=== PATIENT | female | born 1965 | race Two or more races ===

== ENCOUNTER 2018-05-10 23:02 | Emergency (ER) | END 2018-05-11 06:04 | disposition short-term general hospital (02) ==

== ENCOUNTER 2018-08-27 06:10 | Emergency (ER) | END 2018-08-27 10:12 | disposition home or self-care (01) ==

== ENCOUNTER 2019-03-16 00:36 | Emergency (ER) | payer OTHER ==
[~2019-03-16] VITALS: Ht 152.4 cm; Wt 61.4 kg
[~2019-03-16 00:36] MED LIST: AMLO5TAB4 PO; ATOR20TA38 PO; DICY10CA40 PO; METF-849 PO; ONDA4TAB14 PO
[2019-03-16 00:38] VITALS: Ht 152.4 cm; Wt 61.4 kg
[2019-03-16] MEDS ORDERED: HYDROmorphONE 1 MG/ML SYG IV STA (01:10)
[2019-03-16] MEDS ORDERED: ONDANSETRON 4 MG INJ IV STA (01:10)
--- NOTE | 2019-03-16 01:40 | ERD ---
ER Documentation Chief Complaint Chief Complaint BIB DAUGHTER FROM HOME S/P SYNCOPAL EPISODE 30MIN AGO HPI This is a 54-year-old female who is here for trauma. The patient says she woke up went to the restroom, and she is getting back into bed she was using her arm to brace herself on the footboard but her hand slipped off the foot board and she fell over the end of the bed onto the floor landing on the right side of her head and hitting her head on the wood footboard. The patient had positive LOC. The patient does recall falling and hitting the floor but then remembers waking up with her kids around her. She is complaining of right sided headache, right- sided neck pain, left-sided lumbar pain, left-sided shoulder pain. All movement causes worsening of these areas of pain. Her daughter says that she heard her fall and ran into the room I found her laying on the floor unconscious for about 1 minute. The patient says she has a history of recurrent syncope in the past but that she did not pass out tonight. No chest pain shortness of breath no weakness or numbness in the extremities ROS All systems reviewed and are negative except as per history of present illness. Medications Home Meds Active Scripts Ondansetron (Ondansetron Odt) 4 Mg Tab.rapdis, 4 MG PO Q6H PRN for NAUSEA AND/OR VOMITING, #20 TAB Prov:MARITZA CHEN MD 08/27/18 Dicyclomine HCl (Dicyclomine HCl) 10 Mg Capsule, 10 MG PO TID PRN for ABDOMINAL CRAMPING, #20 CAP Prov:MARITZA CHEN MD 08/27/18 Reported Medications Atorvastatin Calcium* (Atorvastatin Calcium*) 20 Mg Tablet, 20 MG PO QHS, #30 TAB 05/11/18 Amlodipine Besylate* (Norvasc*) 5 Mg Tablet, 5 MG PO DAILY, TAB 05/11/18 Metformin* (Glucophage*) 500 Mg Tab, 500 MG PO WITH BREAKFAST DINNE, #30 TAB 05/11/18 Allergies Allergies: Coded Allergies: No Known Drug Allergies (Verified Allergy, Unknown, 08/27/18) PMhx/Soc History of Surgery: Yes (partial hysterctomy, gallbladder removed) Anesthesia Reaction: No Hx Neurological Disorder: No Hx Respiratory Disorders: No Hx Cardiac Disorders: Yes (HTN) Hx Psychiatric Problems: No Hx Miscellaneous Medical Probl: Yes (diabetes) Hx Alcohol Use: No Hx Substance Use: No Hx Tobacco Use: No Smoking Status: Never smoker FmHx Family History: No coronary disease Physical Exam Vitals Vital Signs Date Temp Pulse Resp B/P (MAP) Pulse Ox O2 O2 Flow FiO2 Time Delivery Rate 03/16/19 99.5 89 18 148/81 98 Room Air 00:50 (103) 03/16/19 99.8 83 18 158/80 97 00:38 (106) Physical Exam Const: Well-developed, well-nourished Head: Atraumatic, normocephalic, right-sided temporal tenderness Eyes: Normal Conjunctiva, PERRLA, EOMI, normal sclera, no nystagmus ENT: Normal External Ears, Nose and Mouth, moist mucus membranes. Neck: Full range of motion. No meningismus, no lymphadenopathy. Resp: Clear to auscultation bilaterally, no wheezing, rhonchi, rales Cardio: Regular rate and rhythm, no murmurs, S1 S2 present Abd: Soft, non tender x 4, non distended. Normal bowel sounds, no guarding or rebound, no pulsitile abdominal masses or bruits Skin: No petechiae or rashes, no ecchymosis , no maculopapular rash Back: Left lumbar tenderness, negative straight leg test Ext: No cyanosis, or edema, FROM x 4, left anterior shoulder tender ness normal inspection, neurovascularly intact x 4 Neur: Awake and alert, STR 5/5 x 4, sensation intact x 4, no focal findings, cerebellum intact Psych: Normal Mood and Affect Result Diagram: 03/16/1913403/16/19134 Results 24 hrs Laboratory Tests Test 03/16/19 01:35 White Blood Count 7.7 10^3/ul Red Blood Count 4.05 10^6/ul Hemoglobin 12.9 g/dl Hematocrit 37.1 % Mean Corpuscular Volume 91.6 fl Mean Corpuscular Hemoglobin 31.9 pg Mean Corpuscular Hemoglobin Concent 34.8 g/dl Red Cell Distribution Width 12.3 % Platelet Count 274 10^3/UL Mean Platelet Volume 10.2 fl Immature Granulocytes % 0.100 % Neutrophils % 58.2 % Lymphocytes % 28.3 % Monocytes % 6.6 % Eosinophils % 6.2 % Basophils % 0.6 % Nucleated Red Blood Cells % 0.0 /100WBC Immature Granulocytes # 0.010 10^3/ul Neutrophils # 4.5 10^3/ul Lymphocytes # 2.2 10^3/ul Monocytes # 0.5 10^3/ul Eosinophils # 0.5 10^3/ul Basophils # 0.1 10^3/ul Nucleated Red Blood Cells # 0.0 10^3/ul Sodium Level 142 mmol/L Potassium Level 3.8 mmol/L Chloride Level 105 mmol/L Carbon Dioxide Level 26 mmol/L Anion Gap 11 Blood Urea Nitrogen 8 mg/dl Creatinine 0.35 mg/dl Est Glomerular Filtrat Rate mL/min > 60 mL/min Glucose Level 248 mg/dl Calcium Level 9.7 mg/dl Troponin I < 0.012 ng/ml Serum HCG, Qualitative NEGATIVE Current Medications Medications Dose Sig/John Start Time Status Last (Trade) Ordered Route PRN Stop Time Admin Dose Reason Admin 1 mg ONCE STAT 03/16/19 DC 03/16/19 Hydromorphone IV 01:10 01:52 HCl 03/16/19 01:14 (Dilaudid) Ondansetron 4 mg ONCE STAT 03/16/19 DC 03/16/19 HCl (Zofran IV 01:10 01:52 Inj) 03/16/19 01:14 Procedures/MDM Patient: HIEU PATTON : 1965 Age: 54 Sex: F MR #: [id number] DOS: 03/16/19 0110 Ordering MD: ROSIE WINTERS DO Location: E/R Room/Bed: PROCEDURE: CT head without intravenous contrast CLINICAL INDICATION: Trauma. Pain. COMPARISON: None. TECHNIQUE: Axial CT images from skull base to vertex with coronal and sagittal reformats. DOSE: The estimated administered radiation dose was CTDI vol = 37.01 mGy. DLP = 634.23 mGy-cm. One or more of the following dose reduction techniques were used: automated exposure control, adjustment of the mA and/or kV according to patient size, or use of iterative reconstruction. DICOM images are available. FINDINGS: Parenchyma: No acute hemorrhage, large territorial infarction, or mass. The mckeon-white matter junctions are intact. No space occupying intra-axial masses or extra-axial fluid collections are present. There is mild parenchymal volume loss. There is an empty sella Ventricles: No ventriculomegaly or ventricular effacement. Extra-axial spaces: No herniation or midline shift. Paranasal sinuses: Clear. Mastoids and middle ears: Clear. Visualized orbits: Normal. Vessels: <There is no calcified atherosclerotic arterial plaque identified in the internal carotid arteries.> Bones: Normal. Extracranial soft tissues: Normal. Additional comment: None. IMPRESSION: 1. No acute intracranial abnormality. 2. Empty sella. RPTAT: HRSR Physician Jessica Date Time Electronically viewed and signed by Rafaela Guerrero Physician on 03/16/2019 02:35 RR/ CC: ROSIE WINTERS DO [id number] Ordering MD: ROSIE WINTERS DO Location: E/R Room/Bed: PROCEDURE: CT Cervical Spine. CLINICAL INDICATION: Neck pain status post trauma TECHNIQUE: Helical CT scanning which forms the basis for coronal and sagittal reformatted images. All CT scans at this facility use dose modulation, iterative reconstruction, and/or weight-based dosing when appropriate to reduce radiation dose to as low as reasonably achievable. The CTDIvol is 22.25 mGy and the DLP is 547.81 mGy-cm. One or more of the following dose reduction techniques were used: automated exposure control, adjustment of the mA and/or kV according to patient size, or use of iterative reconstruction technique. DICOM images are available. COMPARISON: None. FINDINGS: Vertebral body heights are maintained as is alignment. No acute fracture is identified. There is nonspecific straightening of the normal cervical lordosis which may be positional or on the basis of muscular spasm. Minor degenerative changes are seen within the cervical and upper thoracic spine. In general, disc space heights appear maintained as do central canal and foraminal volumes. Small 4 mm sclerotic focus to the right of midline within the T4 vertebral body is indeterminate, statistically most likely a bone island particularly in the absence of any known primary neoplasm. The prevertebral soft tissues are within normal limits. The lung apices are clear. IMPRESSION: No definite fracture or significant listhesis, as above. Clinical clearance of the cervical spine is still recommended. RPTAT: HSAF Physician Jessica Date Time Electronically viewed and signed by Myla Samuel Physician on 03/16/2019 02:51 RF/ CC: ROSIE WINTERS DO [id number] Patient: HIEU PATTON : 1965 Age: 54 Sex: F MR #: [id number] DOS: 03/16/19 0110 Ordering MD: ROSIE WINTERS DO Location: E/R Room/Bed: PROCEDURE: CT LUMBAR SPINE WITHOUT CONTRAST CLINICAL INDICATION: 54 years of age female. Pain. Trauma. TECHNIQUE: CT of the lumbar spine was performed without intravenous contrast. Coronal and sagittal reformatted images were obtained from the axial source images. Images were reviewed on a high-resolution PACS workstation. DICOM images are available. Dose information: Based on a 32 cm phantom, the estimated radiation dose (CTDIvol mGy) for each series in this exam is 11. The estimated cumulative dose (DLP mGy-cm) is 285. One or more of the following dose reduction techniques were used: - Automated exposure control. - Adjustment of the mA and/or kV according to patient size. - Use of iterative reconstruction technique. COMPARISON: None available. FINDINGS: There are 5 mobile lumbar type vertebra. Lumbar spine is imaged from T12 to the sacrum. ALIGNMENT: Normal. VERTEBRAE: Vertebral bodies and posterior elements are intact without acute fracture. There is nonfusion of the right L1 transverse process that is unrelated to acute trauma. Bone mineral density appears normal. No suspicious bone lesions. DISKS AND FACETS: At L5-S1, there is advanced degenerative disc disease with decreased disc height and the vacuum phenomenon. There is a small posterior disc osteophyte complex. There is moderate bilateral facet joint arthritis with hypertrophy. Negative for significant central canal stenosis. There is severe bilateral intervertebral foraminal stenosis with potential nerve root compression. The remaining disc levels are normal. EXTRAVERTEBRAL SOFT TISSUES: No significant abnormality. VISUALIZED ABDOMEN AND PELVIS: No significant abnormality. Additional comment: None. IMPRESSION: 1. Negative for evidence of acute fracture or traumatic subluxation of the lumbar spine. 2. Degenerative disc disease and facet joint arthritis at L5-S1 with severe bilateral intervertebral foraminal stenosis and potential nerve root compression. RPTAT: HCTS Physician Seema Date Time Electronically viewed and signed by Edwar Rose Physician on 03/16/2019 02:58 CS/ CC: ROSIE WINTERS DO [id number] [place] [address] Radiology Main Line: [phone] DIAGNOSTIC IMAGING REPORT Patient: HIEU PATTON : 1965 Age: 54 Sex: F MR #: [id number] DOS: 03/16/19 0110 Ordering MD: ROSIE WINTERS DO Location: E/R Room/Bed: PROCEDURE: X-ray left shoulder. CLINICAL INDICATION: None. TECHNIQUE: AP, internal and external rotation, and Y views of the left shoulder were obtained. COMPARISON: Correlation is made with plain film examination of the right shoulder dated 10/11/2018. FINDINGS: No acute fracture. Diastases at the left acromioclavicular joint measures up to about 4 mm. If there is concern for ligamentous injury at the left AC joint consider dedicated acromioclavicular joint series for further evaluation. Diastases of the left AC joint appears slightly greater than that seen at the right AC joint on examination dated 10/11/2018. The soft tissues unremarkable IMPRESSION: 1. Mild diastases at the left AC joint, otherwise nonspecific. 2. If there is strong persistent concern for a left AC joint injury a dedicated AC joint series may be of further use. 3. Otherwise, no evident acute fracture. RPTAT: UU Physician Dar Date Time Electronically viewed and signed by Alfred Ruiz Physician on 03/16/2019 01:42 RS/ CC: ROSIE WINTERS DO [id number] EKG: Rate/Rhythm: Normal Sinus Rhythm,NL intervals QRS, ST, QT: NORMAL [place], QRS, QT] Impression: NORMAL EKG Patient is feeling better after pain medication. The patient had a accidental fall with head trauma causing LOC but there is no evidence of any acute fracture or bleed or any other pathology. Given family and her warning signs to return Patient feels much better at this time, and vital signs are normal, symptoms have improved. I did give strict instructions to return to the ED if symptoms continue or worsen, patient will otherwise follow-up with primary care physician. Patient understood instructions and agreed to plan. Disclaimer: Inadvertent spelling and grammatical errors are likely due to EHR/dictation software use and do not reflect on the overall quality of patient care. Also, please note that the electronic time recorded on this note does not necessarily reflect the actual time of the patient encounter. Departure Diagnosis: Primary Impression: Head injury Encounter type: initial encounter Qualified Codes: S09.90XA - Unspecified injury of head, initial encounter Additional Impressions: Cervical strain Encounter type: initial encounter Qualified Codes: S16.1XXA - Strain of muscle, fascia and tendon at neck level, initial encounter Lumbar strain Encounter type: initial encounter Qualified Codes: S39.012A - Strain of muscle, fascia and tendon of lower back, initial encounter Contusion of shoulder, left Encounter type: initial encounter Qualified Codes: S40.012A - Contusion of left shoulder, initial encounter Condition: Stable ROSIE WINTERS CjErrol GIRALDO March 16, 2019 01:40
[2019-03-16] MEDS ORDERED: IBUP-1542 PO (03:43)
[2019-03-16] MEDS ORDERED: METH500T PO (03:43)
[2019-03-16] MEDS ORDERED: HYDR-4011 PO (03:43)
[2019-03-16 04:35] VITALS: BP 140/89; PULSE 85; RESP 18
== END 2019-03-16 04:36 | disposition home or self-care (01) ==
LOC: E/R 00:36
DX: S09.90XA Unspecified injury of head, initial encounter (principal); S16.1XXA Strain of muscle, fascia and tendon at neck level, initial encounter; S39.012A Strain of muscle, fascia and tendon of lower back, initial encounter; S40.012A Contusion of left shoulder, initial encounter; I10 Essential (primary) hypertension; E11.9 Type 2 diabetes mellitus without complications; W18.09XA Striking against other object with subsequent fall, initial encounter; Y92.009 Unspecified place in unspecified non-institutional (private) residence as the place of occurrence of the external cause; Z79.84 Long term (current) use of oral hypoglycemic drugs
CPT/HCPCS: 70450; 72125; 72131; 73030; 80048; 84484; 84703; 85025; 93005; 96374; 96375; J1170; J2405; Z7502

== ENCOUNTER 2019-04-28 12:41 | Emergency (ER) | payer OTHER ==
[~2019-04-28] VITALS: Ht 165.1 cm; Wt 53.7 kg
[~2019-04-28 12:41] MED LIST changes: -ATOR20TA38 PO; -DICY10CA40 PO; +HYDR-4011 PO; +IBUP-1542 PO; +METH500T PO; -ONDA4TAB14 PO
[2019-04-28 12:51] VITALS: Ht 165.1 cm; Wt 53.7 kg
[2019-04-28] MEDS ORDERED: SOD CHLORIDE 0.9% 1,000 ML IV STA (13:19)
[2019-04-28] MEDS ORDERED: morphine 4 MG/ML VIAL IV STA (13:19)
[2019-04-28] MEDS ORDERED: ONDANSETRON 4 MG INJ IV STA (13:19)
[2019-04-28] MEDS ORDERED: LACTATED RINGER'S 1,000 ML IV STA (13:19)
[2019-04-28] MEDS ORDERED: BENA40TA56 PO (13:40)
[2019-04-28] MEDS ORDERED: LORA0.5T PO (13:47)
[2019-04-28] MEDS ORDERED: CITA10TA10 PO (13:48)
[2019-04-28] MEDS ORDERED: SUCR1TAB56 PO (13:48)
[2019-04-28] MEDS ORDERED: METF100010 PO (13:49)
[2019-04-28] MEDS ORDERED: DICY10CA40 PO (14:12)
[2019-04-28] MEDS ORDERED: ONDA4TAB14 PO (14:12)
--- NOTE | 2019-04-28 14:13 | ERD ---
ER Documentation Chief Complaint Chief Complaint left sided ap x 1.5 wk. diarrhea; n/v HPI 54-year-old female presenting with left-sided abdominal pain that has been intermittent for the past 10 days, now more constant. She describes it as a cramping and dull pain associated with nausea, vomiting that is nonbloody and nonbilious, as well as watery diarrhea. She denies any recent travel or other exposures. No sick contacts. No fevers. Her family states that when she has a lot of pain, she passes out which has been happening to her for quite some time as well. She was seen at [facility] a few days ago and had blood work done. She was told that everything was okay and she was discharged home. However her symptoms continue which is why they are here today. Currently she rates her pain as a 5 out of 10. No dysuria or hematuria. ROS All systems reviewed and are negative except as per history of present illness. Medications Home Meds Active Scripts Ondansetron (Ondansetron Odt) 4 Mg Tab.rapdis, 4 MG PO Q6H PRN for NAUSEA AND/OR VOMITING, #10 TAB Prov:CHAD CHACON MD 04/28/19 Dicyclomine HCl (Dicyclomine HCl) 10 Mg Capsule, 10 MG PO TID PRN for ABDOMINAL CRAMPING, #20 CAP Prov:CHAD CHACON MD 04/28/19 Reported Medications Metformin Hcl* (Metformin Hcl*) 1,000 Mg Tablet, 1000 MG PO WITH BREAKFAST DINNE, #60 TAB 04/28/19 Sucralfate* (Carafate*) 1 Gm Tab, 1 GM PO AC MEALS AND BEDTIME, TAB 04/28/19 Citalopram Hydrobromide* (Celexa*) 10 Mg Tablet, 10 MG PO DAILY, #30 TAB 04/28/19 Lorazepam* (Lorazepam*) 0.5 Mg Tablet, 0.5-1 MG PO QID PRN for ANXIETY, TAB 04/28/19 Benazepril Hcl* (Benazepril Hcl*) 40 Mg Tablet, 40 MG PO DAILY, #30 TAB 04/28/19 Discontinued Reported Medications Amlodipine Besylate* (Norvasc*) 5 Mg Tablet, 5 MG PO DAILY, TAB 05/11/18 Metformin* (Glucophage*) 500 Mg Tab, 1000 MG PO WITH BREAKFAST DINNE, #30 TAB 05/11/18 Discontinued Scripts Methocarbamol* (Robaxin*) 500 Mg Tab, 500 MG PO Q8, #10 TAB Prov:ROSIE WINTERS. DO 03/16/19 Ibuprofen* (Motrin*) 600 Mg Tab, 600 MG PO Q8, #30 TAB Prov:GIOVANI WINTERSSTOLOS A. DO 03/16/19 Hydrocodone/Acetaminophen (Cartwright 5-325 Tablet) 1 Each Tablet, 1 TAB PO Q6H PRN for PAIN, #7 TAB Prov:GIOVANI WINTERSSTOLOS A. DO 03/16/19 Allergies Allergies: Coded Allergies: No Known Drug Allergies (Unverified Allergy, Unknown, 04/28/19) PMhx/Soc History of Surgery: Yes (partial hysterctomy, cholecystectomy) Anesthesia Reaction: No Hx Neurological Disorder: No Hx Respiratory Disorders: No Hx Cardiac Disorders: Yes (HTN) Hx Psychiatric Problems: No Hx Miscellaneous Medical Probl: Yes (diabetes) Hx Alcohol Use: No Hx Substance Use: No Hx Tobacco Use: No Smoking Status: Never smoker FmHx Family History: No diabetes Physical Exam Vitals Vital Signs Date Temp Pulse Resp B/P (MAP) Pulse Ox O2 O2 Flow FiO2 Time Delivery Rate 04/28/19 98.6 57 15 160/99 97 Room Air 15:00 (119) 04/28/19 98.6 85 18 148/83 98 Room Air 13:20 (104) 04/28/19 98.6 71 18 133/68 98 12:51 (89) Physical Exam Const: Mild distress secondary to pain, nontoxic Head: Atraumatic Eyes: Normal Conjunctiva ENT: Normal External Ears, Nose and Mouth. Neck: Full range of motion. No meningismus. Resp: Clear to auscultation bilaterally Cardio: Regular rate and rhythm, no murmurs Abd: Soft, mild tenderness to palpation in the left upper abdomen, non di stended. Normal bowel sounds Skin: No petechiae or rashes Back: No midline or flank tenderness Ext: No cyanosis, or edema Neur: Awake and alert Psych: Normal Mood and Affect Result Diagram: 04/28/19 1321 04/28/19 1321 Results 24 hrs Laboratory Tests Test 04/28/19 13:21 04/28/19 13:41 04/28/19 13:48 White Blood Count 7.3 10^3/ul Red Blood Count 4.55 10^6/ul Hemoglobin 14.3 g/dl Hematocrit 41.8 % Mean Corpuscular Volume 91.9 fl Mean Corpuscular Hemoglobin 31.4 pg Mean Corpuscular 34.2 g/dl Hemoglobin Concent Red Cell Distribution Width 11.9 % Platelet Count 277 10^3/UL Mean Platelet Volume 10.0 fl Immature Granulocytes % 0.100 % Neutrophils % 56.1 % Lymphocytes % 32.8 % Monocytes % 5.7 % Eosinophils % 4.8 % Basophils % 0.5 % Nucleated Red Blood Cells % 0.0 /100WBC Immature Granulocytes # 0.010 10^3/ul Neutrophils # 4.1 10^3/ul Lymphocytes # 2.4 10^3/ul Monocytes # 0.4 10^3/ul Eosinophils # 0.4 10^3/ul Basophils # 0.0 10^3/ul Nucleated Red Blood Cells # 0.0 10^3/ul Sodium Level 142 mmol/L Potassium Level 3.8 mmol/L Chloride Level 104 mmol/L Carbon Dioxide Level 28 mmol/L Anion Gap 10 Blood Urea Nitrogen 6 mg/dl Creatinine 0.42 mg/dl Est Glomerular Filtrat Rate mL/min > 60 mL/min Glucose Level 121 mg/dl Calcium Level 9.8 mg/dl Total Bilirubin 0.7 mg/dl Direct Bilirubin 0.00 mg/dl Indirect Bilirubin 0.7 mg/dl Aspartate Amino Transf (AST/SGOT) 20 IU/L Alanine 26 IU/L Aminotransferase (ALT/SGPT) Alkaline Phosphatase 77 IU/L Total Protein 8.1 g/dl Albumin 4.5 g/dl Globulin 3.60 g/dl Albumin/Globulin Ratio 1.25 Lipase 97 U/L Bedside Glucose 111 mg/dL Bedside Urine pH (LAB) 8.5 Bedside Urine Protein (LAB) 1+ Bedside Urine Glucose (UA) Negative Bedside Urine Ketones (LAB) Negative Bedside Urine Blood Negative Bedside Urine Nitrite (LAB) Negative Bedside Urine Leukocyte Esterase Negative (L Current Medications Medications Dose Sig/John Start Time Status Last (Trade) Ordered Route PRN Stop Time Admin Dose Reason Admin Sodium 1,000 ml @ Q1H STAT 04/28/19 DC 04/28/19 Chloride 1,000 mls/hr IV 13:19 13:33 04/28/19 14:18 Lactated 1,000 ml @ Q1H STAT 04/28/19 DC 04/28/19 Ringer's 1,000 mls/hr IV 13:19 13:33 04/28/19 14:18 Morphine 4 mg ONCE STAT 04/28/19 DC 04/28/19 Sulfate IV 13: 13:33 (morphine) 04/28/19 13:21 Ondansetron 4 mg ONCE STAT 04/28/19 DC 04/28/19 HCl (Zofran IV 13: 13:33 Inj) 04/28/19 13:21 Procedures/MDM EMERGENT LABS AND DIAGNOSTIC STUDIES: Lab Results above were reviewed and interpreted by me. CBC: no anemia or evidence of infection CMP: No evidence of clinically significant electrolyte abnormality, acidosis, renal failure, hypoglycemia, liver disease, or biliary obstruction Urine dip shows no evidence of infection Radiology Results as interpreted by Radiology below were reviewed by Sadie Chacon MD: CT abdomen and pelvis shows no acute abnormalities Initial Nursing notes reviewed. Previous Medical Records requested via the Electronic Health Record. EMERGENCY DEPARTMENT COURSE / MEDICAL DECISION MAKING: Patient is presenting with 10 days of abdominal pain with associated vomiting an d diarrhea. She was afebrile and hemodynamically stable upon arrival. She was treated with IV fluids and antiemetics. At this moment the etiology of the abdominal pain is unknown. The patients v itals have been noted and are currently afebrile and hemodynamically stable. The workup, physical exam and observation period do not indicate a serious cause to the pain. The patients symptoms have improved while in the ED and the patient remains hemodynamically stable. Patient was able to tolerate PO. The current assessment has been explained to the patient including the fact that the etiology of the pain cannot be ruled out with certainty. Patient was advised that in the event this is early in the process of a more serious condition they may expect their symptoms to worsen and if so to return to the emergency department immediately. Patient was advised to follow up with primary care physician as soon as possible for re-evaluation within the next 1-2 days. All of the patients questions were answered. Patient verbalized understanding of plan and agrees. Advised to return to the ER for reevaluation within 12 hours if symptoms worsen. Prescriptions given included Zofran and dicyclomine Patient's blood pressure was elevated (>120/80) but appears stable without evide nce of hypertensive emergency or urgency. The patient was counseled about the risks of hypertension and urged to pursue outpatient monitoring and therapy within a week with their primary care physician. Departure Diagnosis: Primary Impression: Abdominal pain Abdominal location: generalized Qualified Codes: R10.84 - Generalized abdominal pain Additional Impression: Nausea, vomiting and diarrhea Condition: Stable Patient Instructions: Abdominal Pain, Vomiting And Diarrhea, Nonspecific (Adult) Additional Instructions: Make an appointment with your primary care doctor in the next 1 to 2 days to hav e further testing done if your symptoms continue. If your pain is worsening or you develop any other worrisome symptoms, return to the ER. CHAD CHACON MD Apr 28, 2019 14:13
[2019-04-28 15:00] VITALS: BP 160/99; PULSE 57; RESP 15
== END 2019-04-28 15:03 | disposition home or self-care (01) ==
LOC: E/R 12:41
DX: R10.84 Generalized abdominal pain (principal); R11.2 Nausea with vomiting, unspecified; R19.7 Diarrhea, unspecified; I10 Essential (primary) hypertension; E11.9 Type 2 diabetes mellitus without complications; Z79.84 Long term (current) use of oral hypoglycemic drugs
CPT/HCPCS: 36415; 74176; 80053; 81003; 82962; 83690; 85025; 96361; 96374; 96375; J2270; J2405; J7030; J7120; Z7502; Z7610

== ENCOUNTER 2019-05-10 02:19 | Observation (INO) | payer OTHER ==
[~2019-05-10] VITALS: Ht 152.4 cm; Wt 55.5 kg
[~2019-05-10 02:19] MED LIST changes: -AMLO5TAB4 PO; +BENA40TA56 PO; +CITA10TA10 PO; +DICY10CA40 PO; -HYDR-4011 PO; -IBUP-1542 PO; +LORA0.5T PO; -METF-849 PO; +METF100010 PO; -METH500T PO; +ONDA4TAB14 PO; +SUCR1TAB56 PO
[2019-05-10 02:21] VITALS: Ht 152.4 cm; Wt 55.5 kg
[2019-05-10] MEDS ORDERED: ONDANSETRON 4 MG INJ IV STA (03:11)
[2019-05-10] MEDS ORDERED: morphine 4 MG/ML VIAL IV STA ×2 (03:11→04:35)
--- NOTE | 2019-05-10 03:21 | ERD ---
ER Documentation Chief Complaint Chief Complaint SYNCOPE, HIT HEAD AND ARM, LLQ PAIN HPI Is a 54-year-old female who presents for evaluation of syncope. Patient has history of chronic abdominal pain, over the last 3 months, her states that the patient's pain has been getting worse. She has not had a fever, but he states that she has been experiencing progressive weight loss. Patient has not a fever, she has no chest pain or shortness of breath. I had previously seen the patient at [facility] on May 05. ROS All systems reviewed and are negative except as per history of present illness. Medications Home Meds Active Scripts Ondansetron (Ondansetron Odt) 4 Mg Tab.rapdis, 4 MG PO Q6H PRN for NAUSEA AND/OR VOMITING, #10 TAB Prov:CHAD GARCIA MD 04/28/19 Dicyclomine HCl (Dicyclomine HCl) 10 Mg Capsule, 10 MG PO TID PRN for ABDOMINAL CRAMPING, #20 CAP Prov:CHAD GARCIA MD 04/28/19 Reported Medications Metformin Hcl* (Metformin Hcl*) 1,000 Mg Tablet, 1000 MG PO WITH BREAKFAST DINNE, #60 TAB 04/28/19 Sucralfate* (Carafate*) 1 Gm Tab, 1 GM PO AC MEALS AND BEDTIME, TAB 04/28/19 Citalopram Hydrobromide* (Celexa*) 10 Mg Tablet, 10 MG PO DAILY, #30 TAB 04/28/19 Lorazepam* (Lorazepam*) 0.5 Mg Tablet, 0.5-1 MG PO QID PRN for ANXIETY, TAB 04/28/19 Benazepril Hcl* (Benazepril Hcl*) 40 Mg Tablet, 40 MG PO DAILY, #30 TAB 04/28/19 Allergies Allergies: Coded Allergies: No Known Drug Allergies (Unverified Allergy, Unknown, 04/28/19) PMhx/Soc History of Surgery: Yes (partial hysterctomy, cholecystectomy) Anesthesia Reaction: No Hx Neurological Disorder: No Hx Respiratory Disorders: No Hx Cardiac Disorders: Yes (HTN) Hx Psychiatric Problems: No Hx Miscellaneous Medical Probl: Yes (diabetes) Hx Alcohol Use: No Hx Substance Use: No Hx Tobacco Use: No Smoking Status: Never smoker Physical Exam Vitals Vital Signs Date Temp Pulse Resp B/P (MAP) Pulse Ox O2 O2 Flow FiO2 Time Delivery Rate 05/10/19 97.6 64 18 124/71 95 02:21 (88) Physical Exam Const: No acute distress Head: Atraumatic Eyes: Normal Conjunctiva ENT: Normal External Ears, Nose and Mouth. Neck: Full range of motion. No meningismus. Resp: Clear to auscultation bilaterally Cardio: Regular rate and rhythm, no murmurs Abd: Soft, non tender, non distended. Normal bowel sounds Skin: No petechiae or rashes Back: No midline or flank tenderness Ext: No cyanosis, or edema Neur: Awake and alert Psych: Normal Mood and Affect Result Diagram: 05/10/1925405/10/19254 Results 24 hrs Laboratory Tests Test 05/10/19 02:55 05/10/19 03:09 White Blood Count 8.1 10^3/ul Red Blood Count 4.38 10^6/ul Hemoglobin 13.8 g/dl Hematocrit 39.7 % Mean Corpuscular Volume 90.6 fl Mean Corpuscular Hemoglobin 31.5 pg Mean Corpuscular Hemoglobin Concent 34.8 g/dl Red Cell Distribution Width 11.6 % Platelet Count 265 10^3/UL Mean Platelet Volume 10.1 fl Immature Granulocytes % 0.200 % Neutrophils % 55.2 % Lymphocytes % 33.9 % Monocytes % 5.5 % Eosinophils % 4.7 % Basophils % 0.5 % Nucleated Red Blood Cells % 0.0 /100WBC Immature Granulocytes # 0.020 10^3/ul Neutrophils # 4.5 10^3/ul Lymphocytes # 2.8 10^3/ul Monocytes # 0.5 10^3/ul Eosinophils # 0.4 10^3/ul Basophils # 0.0 10^3/ul Nucleated Red Blood Cells # 0.0 10^3/ul Sodium Level 143 mmol/L Potassium Level 3.6 mmol/L Chloride Level 109 mmol/L Carbon Dioxide Level 25 mmol/L Anion Gap 9 Blood Urea Nitrogen 11 mg/dl Creatinine 0.51 mg/dl Est Glomerular Filtrat Rate mL/min > 60 mL/min Glucose Level 168 mg/dl Calcium Level 9.4 mg/dl Total Bilirubin 0.4 mg/dl Direct Bilirubin 0.00 mg/dl Indirect Bilirubin 0.4 mg/dl Aspartate Amino Transf (AST/SGOT) 24 IU/L Alanine Aminotransferase (ALT/SGPT) 29 IU/L Alkaline Phosphatase 79 IU/L Troponin I < 0.012 ng/ml Total Protein 7.6 g/dl Albumin 4.4 g/dl Lipase 140 U/L Bedside Glucose 141 mg/dL Current Medications Medications Dose Sig/John Start Time Status Last (Trade) Ordered Route PRN Stop Time Admin Dose Reason Admin Morphine 4 mg ONCE STAT 05/10/19 DC 05/10/19 Sulfate IV 03:11 05/10/19 03:25 (morphine) 03:13 Ondansetron 4 mg ONCE STAT 05/10/19 DC 05/10/19 HCl (Zofran IV 03:11 05/10/19 03:25 Inj) 03:13 Procedures/MDM 54-year-old female with a history of chronic abdominal pain, presents for evaluation of syncope. Patient had head trauma, and head CT ordered, as well as abdominal pain work-up. EKG: Rate/Rhythm: Normal Sinus Rhythm QRS, ST, T-waves: No changes consistent w/ acute ischemia Impression: No evidence of ischemia or arrhythmia 4:10 AM: I reviewed patient's CT, no obvious evidence of intracranial findings, awaiting read. Patient lab work all returned negative, she continues to have pain, given this is now third visit over the last 3 weeks, and she has been having weight loss, and a syncopal episode, which may be related to her decreased oral intake and abdominal pain, I feel that she has failed outpatient management, and warrants admission. Patient will be admitted to telemetry observation. I discussed the plan of care with the patient and her spouse. Accepting Care Team: Current data and ongoing care discussed. Primary: Nahun Consulting: None Outstanding Data: none Departure Diagnosis: Primary Impression: Syncope Syncope type: unspecified Qualified Codes: R55 - Syncope and collapse Additional Impression: Abdominal pain Abdominal location: unspecified location Qualified Codes: R10.9 - Unspecified abdominal pain Condition: GIAN Pace MD May 10, 2019 03:21
[2019-05-10] MEDS ORDERED: ONDANSETRON 4 MG INJ IV PRN (04:30)
[2019-05-10] MEDS ORDERED: DICYCLOMINE 10 MG CAP PO PRN (08:30)
[2019-05-10] MEDS ORDERED: LORAZEPAM 0.5 MG TAB PO PRN (08:30)
[2019-05-10] MEDS ORDERED: ACETAMINOPHEN 325 MG TAB PO PRN (08:30)
[2019-05-10] MEDS ORDERED: NACL 0.9% 3 ML SYG IV SCH (08:30)
[2019-05-10] MEDS ORDERED: DOCUSATE SODIUM 100 MG CAP PO PRN (08:30)
[2019-05-10] MEDS: FAMOTIDINE 20 MG TAB PO SCH ×2 (10:19→21:14)
[2019-05-10] MEDS: CITALOPRAM 20 MG TAB PO SCH (10:53)
[2019-05-10] MEDS: BENAZEPRIL 40 MG TAB PO SCH (10:53)
[2019-05-10] MEDS ORDERED: GLUCOSE GEL 15 GRAM TUBE PO PRN ×2 (12:30)
[2019-05-10] MEDS ORDERED: GLUCAGON 1 MG INJ IM PRN (12:30)
[2019-05-10] MEDS ORDERED: DEXTROSE 50% 50 ML SYRINGE IV PRN ×2 (12:30)
[2019-05-10] MEDS ORDERED: GLUCOSE GEL 15 GRAM TUBE BUCCAL PRN (12:30)
[2019-05-10] MEDS ORDERED: MAGNESIUM CITRATE 300 ML BTL PO ONE (12:30)
[2019-05-10 14:00] VITALS: BP 112/65; PULSE 61; RESP 20
--- NOTE | 2019-05-10 15:43 | HP ---
DATE OF ADMISSION: 05/10/2019 CHIEF COMPLAINT: Syncopal episode. HISTORY OF PRESENT ILLNESS: A 54-year-old female with a history of chronic abdominal pain for severa l months was brought into emergency room with a chief complaint of a syncopal episode. The patient w as evaluated at [facility] emergency room on 05/05/2019. She reports that the CAT scan at that time showed stool throughout the colon with no other abnormalities. The patient used the bathroom a nd while she was standing up, she felt dizzy and fell onto the ground. She keeps her head on her arm against a wall. She denies any focal weakness or numbness. Normal speech or visual difficulties. CAT scan of the brain was unremarkable. CAT scan of the abdomen was also unremarkable. PAST MEDICAL HISTORY: 1. Type 2 diabetes mellitus. 2. Hypertension. PAST SURGICAL HISTORY: Status post partial hysterectomy and status post cholecystectomy. MEDICATIONS PRIOR TO ADMISSION: 1. Zofran. 2. Dicyclomine. 3. Metformin. 4. Sucralfate. 5. Celexa. 6. Lorazepam. 7. Benazepril. SOCIAL HISTORY: The patient lives at home. She denies tobacco or alcohol use. PHYSICAL EXAMINATION: GENERAL: Well-developed, well-nourished female who is in no apparent distress. VITAL SIGNS: Stable. She is afebrile. HEENT: Extraocular muscles intact. Pupils equal and reactive to light bilaterally. Sclerae are ani cteric. Oropharynx is clear and moist. NECK: Supple, no JVD, no carotid bruits. LUNGS: Clear to auscultation bilaterally. CARDIAC: Regular rate and rhythm. No murmurs, rubs or gallops. ABDOMEN: Soft, diffusely tender to palpation, especially in the left lower quadrant region. No rebo und, no guarding. Normoactive bowel sounds. EXTREMITIES: No clubbing, cyanosis, or edema. NEUROLOGICAL: Completely nonfocal. LABORATORY DATA: CBC within normal limits. BMP is within normal limits. Lipase is 140. ASSESSMENT: 1. A 54-year-old female with a syncopal episode, most likely vasovagal in nature. 2. Chronic abdominal pain, most likely due to chronic constipation. 3. Hypertension. 4. Type 2 diabetes mellitus. PLAN: 1. Place in tele observation. 2. Resume home medications. 3. Magnesium citrate x1 bottle. 4. Avoid narcotics due to constipation. 5. Plan of care was discussed with the patient. Dictated By: SAGAR HINTON/KRISSY Conf#: [id number] DID#: [id number]
[2019-05-10] MEDS: SUCRALFATE 1 GM TAB PO SCH ×3 (15:50→21:14)
[2019-05-10] MEDS: INSULIN ASPART [NOVOLOG] 3 ML PEN SC SCH ×2 (17:44→21:00)
[2019-05-10] MEDS: metFORMIN 500 MG TAB PO SCH (17:45)
[2019-05-10] MEDS: KETOROLAC 15 MG INJ IV PRN ×2 (17:46→23:50)
[2019-05-10 20:00] VITALS: BP 115/61; PULSE 55; RESP 18
[2019-05-10 23:39] VITALS: BP 121/68; PULSE 59; RESP 20
[2019-05-11] MEDS: DEXTROSE 5%-0.45% NACL 1,000 ML IV SCH ×2 (01:43→10:30)
[2019-05-11 03:46] VITALS: BP 133/76; PULSE 53; RESP 20
[2019-05-11] MEDS: KETOROLAC 15 MG INJ IV PRN (06:33)
[2019-05-11 07:23] VITALS: BP 122/60; PULSE 55; RESP 18
[2019-05-11] MEDS: metFORMIN 500 MG TAB PO SCH (07:55)
[2019-05-11] MEDS: INSULIN ASPART [NOVOLOG] 3 ML PEN SC SCH ×2 (07:55→11:50)
[2019-05-11] MEDS: FAMOTIDINE 20 MG TAB PO SCH (08:50)
[2019-05-11] MEDS: CITALOPRAM 20 MG TAB PO SCH (08:50)
[2019-05-11] MEDS: SUCRALFATE 1 GM TAB PO SCH ×2 (08:50→13:12)
[2019-05-11] MEDS: BENAZEPRIL 40 MG TAB PO SCH (08:50)
[2019-05-11] MEDS ORDERED: DOCU-144 PO (10:53)
--- NOTE | 2019-05-11 10:54 | PDOCDIS ---
Discharge Instructions CONDITION [id number] Patient Condition: [id number] Good HOME CARE INSTRUCTIONS: [id number] Diet Instructions: [id number] Activity Restrictions: [id number] No Restrictions FOLLOW UP/APPOINTMENTS Follow-up Plan pcp 1 week SAGAR Toribio MD May 11, 2019 10:54
[2019-05-11] MEDS ORDERED: PANT40TA3 PO (11:00)
[2019-05-11 11:09] VITALS: BP 118/55; PULSE 60; RESP 20
--- NOTE | 2019-05-11 12:15 | DS ---
DATE OF ADMISSION: 05/10/2019 DATE OF DISCHARGE: DISCHARGE DIAGNOSES: 1. A 54-year-old female with syncopal episode, most likely vasovagal in nature. 2. Chronic abdominal pain of unclear etiology. 3. Chronic gastritis. Status post EGD 1 month prior to admission. 4. Hypertension. 5. Type 2 diabetes mellitus. PROCEDURE: During hospitalization is CAT scan. HOSPITAL COURSE: A 54-year-old female with history of abdominal pain for several months, was brought in to emergency room following near syncopal episode. The patient stood up while she was in the [facility] hroom and suddenly became lightheaded and fell onto the ground. She believes she had a syncopal epis ode. She denies any chest pain, focal weakness or numbness. Telemetry monitoring was unremarkable. The patient has had ongoing abdominal pain for several months. She underwent EGD, 1 month prior to admission and found to have chronic gastritis. There was no evidence of H. pylori. The patient was prescribed sucralfate and PPI. CAT scan of the abdomen and pelvis was fairly unremarkable. The patient is in a stable condition for discharge. I prescribed Colace since she reported having co nstipation. Case was discussed with Dr. Brown. The patient will undergo colonoscopy as outpatient. MEDICATIONS ON DISCHARGE: 1. Benazepril 40 mg daily. 2. Celexa 10 mg daily. 3. Dicyclomine 10 mg t.i.d. 4. Lorazepam as needed. 5. Metformin 1000 mg b.i.d. 6. Zofran 4 mg q.6 hours p.r.n. 7. Carafate 1 g 4 times daily. 8. Protonix 40 mg p.o. daily. Follow up with PCP in 1 week. Follow up with Dr. Brown as soon as possible for diagnostic colonoscopy. Dictated By: SAGAR MATOS MD SK/NTS Conf#: [id number] DID#: [id number] CC: DEZ BROWN; ROBBY SAINZ MD;*EndCC*
[2019-05-17] MEDS ORDERED: LIDOCAINE 2% (SDV) 5 ML INJ ONE (08:02)
[2019-05-17] MEDS ORDERED: KETAMINE (50 MG/ML) 10 ML VIAL ONE (08:02)
== END 2019-05-11 15:56 | disposition home or self-care (01) ==
LOC: E/R 02:19 → TEL 04:09 → EDBEDREQ 13:31
PROVIDERS: ADMIT Internal Medicine; ATTEND Internal Medicine
DX: R55 Syncope and collapse (principal); G89.29 Other chronic pain; R10.9 Unspecified abdominal pain; K29.50 Unspecified chronic gastritis without bleeding; I10 Essential (primary) hypertension; E11.9 Type 2 diabetes mellitus without complications; Z79.84 Long term (current) use of oral hypoglycemic drugs
CPT/HCPCS: 36415; 70450; 74176; 80048; 80076; 82962; 83036; 83690; 84443; 84484; 85025; 93005; 96374; 96375; J1815; J1885; J2270; J2405; J7042; Z7500; Z7502; Z7610; G0378

== ENCOUNTER 2019-06-10 17:25 | Inpatient (IN) | payer OTHER ==
[~2019-06-10] VITALS: Ht 152.4 cm; Wt 54.0 kg
[~2019-06-10 17:25] MED LIST changes: +DOCU-144 PO; +ERYT250C52 PO; +METO10TA92 PO; +PANT40TA3 PO
[2019-06-10] MEDS ORDERED: SOD CHLORIDE 0.9% 1,000 ML IV STA (19:10)
[2019-06-10] MEDS ORDERED: METOCLOPRAMIDE 10 MG INJ IV STA (19:10)
[2019-06-10] MEDS ORDERED: LIDOCAINE/MYLANTA 40 ML BTL PO STA (19:10)
[2019-06-10] MEDS ORDERED: FAMOTIDINE 20 MG INJ IV STA (19:10)
[2019-06-10] MEDS ORDERED: morphine 4 MG/ML VIAL IV STA (19:53)
--- NOTE | 2019-06-10 21:20 | ERD ---
ER Documentation Chief Complaint Chief Complaint Upper ABD pain x 2 days with n/v HPI 54-year-old female with a history of gastritis and chronic abdominal pain presenting with severe abdominal pain for the past 3 days associated with nonbloody and nonbilious vomiting. She has also had some loose stools that are nonbloody. She complains of severe stabbing pain in the center of her abdomen that radiates all over her abdomen. She states she feels very weak because she has been unable to eat or drink due to the pain. Per the patient's , she had a syncopal episode earlier today due to her symptoms. She is on sucralfate and Protonix at home without any relief of her symptoms. Pain is constant, worsening, currently a 10 out of 10. Denies fevers or chills. Denies chest pain or shortness of breath. She states that this pain is similar to her usual pain ROS All systems reviewed and are negative except as per history of present illness. Medications Home Meds Active Scripts Pantoprazole* (Protonix*) 40 Mg Tablet.dr, 40 MG PO DAILY for 30 Days, TAB Prov:SAGAR MATOS MD 05/11/19 Docusate Sodium* (Colace*) 100 Mg Capsule, 100 MG PO Q12H PRN for .CONSTIPATION for 30 Days, CAP Prov:SAGAR MATOS MD 05/11/19 Ondansetron (Ondansetron Odt) 4 Mg Tab.rapdis, 4 MG PO Q6H PRN for NAUSEA AND/OR VOMITING, #10 TAB Prov:CHAD GARCIA MD 04/28/19 Dicyclomine HCl (Dicyclomine HCl) 10 Mg Capsule, 10 MG PO TID PRN for ABDOMINAL CRAMPING, #20 CAP Prov:CHAD GARCIA MD 04/28/19 Reported Medications Metformin Hcl* (Metformin Hcl*) 1,000 Mg Tablet, 1000 MG PO WITH BREAKFAST DINNE, #60 TAB 04/28/19 Sucralfate* (Carafate*) 1 Gm Tab, 1 GM PO AC MEALS AND BEDTIME, TAB 04/28/19 Citalopram Hydrobromide* (Celexa*) 10 Mg Tablet, 10 MG PO DAILY, #30 TAB 04/28/19 Lorazepam* (Lorazepam*) 0.5 Mg Tablet, 0.5-1 MG PO QID PRN for ANXIETY, TAB 04/28/19 Benazepril Hcl* (Benazepril Hcl*) 40 Mg Tablet, 40 MG PO DAILY, #30 TAB 04/28/19 Allergies Allergies: Coded Allergies: No Known Drug Allergies (Unverified Allergy, Unknown, 04/28/19) PMhx/Soc History of Surgery: Yes (cholecystectomy, hysterectomy, hemorrhoidectomy) Anesthesia Reaction: No Hx Neurological Disorder: No Hx Respiratory Disorders: No Hx Cardiac Disorders: Yes (HTN) Hx Psychiatric Problems: No Hx Miscellaneous Medical Probl: Yes (Gastritis, chronic abdominal pain) Hx Alcohol Use: No Hx Substance Use: No Hx Tobacco Use: No Smoking Status: Never smoker FmHx Family History: No diabetes Physical Exam Vitals Vital Signs Date Temp Pulse Resp B/P (MAP) Pulse Ox O2 O2 Flow FiO2 Time Delivery Rate 06/10/19 73 18 175/86 98 Room Air 20:00 (115) 06/10/19 86 14 175/85 98 Room Air 18:15 (115) 06/10/19 98.9 75 16 163/91 97 17:27 (115) Physical Exam Const: Appears to be in distress secondary to pain. Nontoxic Head: Atraumatic Eyes: Normal Conjunctiva ENT: Normal External Ears, Nose and Mouth. Neck: Full range of motion. No meningismus. Resp: Clear to auscultation bilaterally Cardio: Regular rate and rhythm, no murmurs Abd: Soft, tenderness in the epigastrium with guarding but no rebound. Non distended. Normal bowel sounds Skin: No petechiae or rashes Back: No midline or flank tenderness Ext: No cyanosis, or edema Neur: Awake and alert Psych: Normal Mood and Affect Result Diagram: 06/10/19184706/10/191847 Results 24 hrs Laboratory Tests Test 06/10/19 18:48 06/10/19 19:01 06/10/19 19:12 White Blood Count 8.7 10^3/ul Red Blood Count 4.28 10^6/ul Hemoglobin 13.6 g/dl Hematocrit 37.7 % Mean Corpuscular Volume 88.1 fl Mean Corpuscular Hemoglobin 31.8 pg Mean Corpuscular Hemoglobin Concent 36.1 g/dl Red Cell Distribution Width 11.9 % Platelet Count 293 10^3/UL Mean Platelet Volume 9.7 fl Immature Granulocytes % 0.200 % Neutrophils % 63.6 % Lymphocytes % 25.6 % Monocytes % 6.0 % Eosinophils % 4.0 % Basophils % 0.6 % Nucleated Red Blood Cells % 0.0 /100WBC Immature Granulocytes # 0.020 10^3/ul Neutrophils # 5.5 10^3/ul Lymphocytes # 2.2 10^3/ul Monocytes # 0.5 10^3/ul Eosinophils # 0.4 10^3/ul Basophils # 0.1 10^3/ul Nucleated Red Blood Cells # 0.0 10^3/ul Urine Color YELLOW Urine Clarity SLIGHTLY CLOUDY Urine pH 7.0 Urine Specific [place] 1.024 Urine Ketones NEGATIVE mg/dL Urine Nitrite NEGATIVE mg/dL Urine Bilirubin NEGATIVE mg/dL Urine Urobilinogen NEGATIVE mg/dL Urine Leukocyte Esterase NEGATIVE [place]/ul Urine Microscopic RBC 1 /HPF Urine Microscopic WBC 2 /HPF Urine Squamous Epithelial Cells FEW /HPF Urine Mucus MANY /HPF Urine Hemoglobin NEGATIVE mg/dL Urine Glucose NEGATIVE mg/dL Urine Total Protein 1+ mg/dl Sodium Level 141 mmol/L Potassium Level 3.6 mmol/L Chloride Level 104 mmol/L Carbon Dioxide Level 28 mmol/L Anion Gap 9 Blood Urea Nitrogen 7 mg/dl Creatinine 0.52 mg/dl Est Glomerular Filtrat Rate mL/min > 60 mL/min Glucose Level 147 mg/dl Calcium Level 10.1 mg/dl Total Bilirubin 0.5 mg/dl Direct Bilirubin 0.00 mg/dl Indirect Bilirubin 0.5 mg/dl Aspartate Amino Transf (AST/SGOT) 18 IU/L Alanine Aminotransferase (ALT/SGPT) 29 IU/L Alkaline Phosphatase 74 IU/L Total Protein 7.7 g/dl Albumin 4.3 g/dl Globulin 3.40 g/dl Albumin/Globulin Ratio 1.26 Lipase 58 U/L POC Beta HCG, Qualitative NEGATIVE Bedside Glucose 131 mg/dL Current Medications Medications Dose Sig/John Start Time Status Last (Trade) Ordered Route PRN Stop Time Admin Dose Reason Admin Sodium 1,000 ml @ Q1H STAT 06/10/19 DC 06/10/19 Chloride 1,000 mls/hr IV 19:10 06/10/19 19:16 20:09 10 mg ONCE STAT 06/10/19 DC 06/10/19 Metoclopramid IV 19:10 06/10/19 19:16 e HCl 19:11 (Reglan) Famotidine 20 mg ONCE STAT 06/10/19 DC 06/10/19 (Pepcid Iv) IV 19:10 06/10/19 19:16 19:11 40 ml ONCE STAT 06/10/19 DC 06/10/19 Miscellaneous PO 19:10 06/10/19 19:16 Medication 19:11 (Gi Cocktail (2)) Morphine 4 mg ONCE STAT 06/10/19 DC 06/10/19 Sulfate IV 19:53 06/10/19 19:57 (morphine) 19:54 Procedures/MDM EMERGENT LABS AND DIAGNOSTIC STUDIES: Lab Results above were reviewed and interpreted by me. CBC: no anemia or evidence of infection CMP: No evidence of clinically significant electrolyte abnormality, acidosis, renal failure, hypoglycemia, liver disease, or biliary obstruction Lipase: no evidence of pancreatitis Initial Nursing notes reviewed. Previous Medical Records requested via the Electronic Health Record. EMERGENCY DEPARTMENT COURSE / MEDICAL DECISION MAKING: . Patient presents with acute on chronic abdominal pain. Vitals are notable for hypertension but otherwise normal. Doubt aortic dissection or AAA. Labs did not show any significant abnormalities. I doubt acute surgical abdomen I do not believe any imaging is necessary at this time as the patient has had multiple visits for similar symptoms with imaging done. Patient was treated with IV fluids, GI cocktail, pain medications, and antiemetics with no significant relief of her symptoms. She will be admitted for further pain control, work-up, and management. Accepting Care Team: Current data and ongoing care discussed. Time: Time of admission Primary Provider: Dr. Johns Departure Diagnosis: Primary Impression: Intractable abdominal pain Condition: CHAD Harris MD Jun 10, 2019 21:20
[2019-06-10] MEDS ORDERED: ACETAMINOPHEN 325 MG TAB PO PRN ×2 (21:30→23:30)
[2019-06-10] MEDS ORDERED: ONDANSETRON 4 MG INJ IV PRN (21:30)
[2019-06-10 22:00] VITALS: BP 165/83; PULSE 68; RESP 17
[2019-06-10 22:42] VITALS: Ht 152.4 cm; Wt 54.0 kg
--- NOTE | 2019-06-10 23:29 | QN ---
Documentation Comment H&P dict a/p 1. gi: probable gastroparesis 2. ?syncope, likely orthostatic, check echo and orthostatics RICKY DIXON MD Jun 10, 2019 23:29
[2019-06-10] MEDS ORDERED: LORAZEPAM 0.5 MG TAB PO PRN (23:30)
[2019-06-10] MEDS: HYDROmorphONE 0.5 MG/0.5 ML SYG IV PRN (23:40)
[2019-06-10] MEDS ORDERED: DEXTROSE 50% 50 ML SYRINGE IV PRN ×2 (23:45)
[2019-06-10] MEDS ORDERED: GLUCOSE GEL 15 GRAM TUBE BUCCAL PRN (23:45)
[2019-06-10] MEDS ORDERED: GLUCAGON 1 MG INJ IM PRN (23:45)
[2019-06-10] MEDS ORDERED: GLUCOSE GEL 15 GRAM TUBE PO PRN ×2 (23:45)
[2019-06-10] MEDS: SOD CHLORIDE 0.9% 1,000 ML IV SCH (23:50)
--- NOTE | 2019-06-10 23:52 | HP ---
DATE OF ADMISSION: 06/10/2019 CHIEF COMPLAINT: Abdominal pain. HISTORY OF PRESENTING ILLNESS: The patient presents to the emergency room at [facility] h abdominal pain for the last 3 to 4 days, which has been mostly constant but somewhat worsening with associated nausea. She states she is able to tolerate liquids, but not solid food without vomiting. This pain is generalized, worse in the periumbilical area. No associated fevers or chills. She do es state that she has had approximately 30 pounds of weight loss over the past 2 to 3 months. PAST MEDICAL HISTORY: Significant for diabetes, hypertension. MEDICATIONS OUTPATIENT: Include: 1. Bentyl. 2. Benazepril. 3. Celexa. 4. Ativan. 5. Colace. 6. Zofran. 7. Protonix. 8. Carafate. 9. Metformin. ALLERGIES: NO KNOWN DRUG ALLERGIES. SOCIAL HISTORY: The patient lives at home in [place] with her and daughters. She is indepe ndent of activities of daily living, not working. Denies tobacco, alcohol or illicit drug use. FAMILY HISTORY: Noncontributory. REVIEW OF SYSTEMS: Five systems reviewed and found not to be revealing. PHYSICAL EXAMINATION: VITAL SIGNS: Blood pressure 139/74, pulse rate 78, respirations 16, temperature is 98.9. GENERAL: Pleasant woman, somewhat anxious, alert and oriented x3. HEENT: Normocephalic, atraumatic without evident scleral icterus, perioral cyanosis. Mucous membran es are moist. NECK: Soft and supple without masses. No evidence of jugular venous distention or carotid bruits. CHEST: Clear to auscultation and percussion bilaterally. HEART: Regular rate and rhythm, S1-S2, no added sounds. ABDOMEN: Soft, nontender, nondistended without palpable hepatosplenomegaly. EXTREMITIES: Without clubbing, cyanosis or edema. SKIN: Without rashes. NEUROLOGIC: Grossly intact. LABORATORY STUDIES: Reveal hemoglobin of 13.6 g/dL, white count of 8700, platelets of 293,000. [place] um 141, potassium 3.6, chloride 104, bicarbonate 28, BUN 7, creatinine 0.52, glucose 147. Liver func tion tests are within normal limits. HCG is negative. UA is negative for signs of infection. DIAGNOSTIC DATA: The patient had CT scan performed on 05/10/2019 which revealed debris-filled disten ded stomach worse than on prior exam with focal dilated loop of small bowel. ASSESSMENT AND PLAN: 1. Gastrointestinal: The patient is with abdominal pain, unclear etiology at this time favor gastro paresis as the most likely scenario. Obtain gastric emptying study. Continue pain with medication, Protonix, Carafate. Await GI evaluation. 2. The patient has previously been diagnosed with chronic gastritis. 3. Diabetes. 4. Hypertension. Dictated By: RICKY DIXON MD RER/NTS Conf#: [id number] DID#: [id number] CC: DEZ GARCIA;*EndCC*
[2019-06-11 02:53] VITALS: BP 135/79; PULSE 62; RESP 17
[2019-06-11] MEDS: PANTOPRAZOLE (EC) 40 MG TAB PO SCH (06:32)
[2019-06-11] MEDS: HYDROmorphONE 0.5 MG/0.5 ML SYG IV PRN ×4 (07:28→21:56)
[2019-06-11] MEDS: SUCRALFATE 1 GM TAB PO SCH ×4 (07:33→20:50)
[2019-06-11] MEDS: INSULIN ASPART [NOVOLOG] 3 ML PEN SC SCH ×4 (07:35→20:51)
[2019-06-11 08:18] VITALS: BP 186/91; PULSE 66; RESP 18
[2019-06-11] MEDS: BENAZEPRIL 40 MG TAB PO SCH (09:08)
[2019-06-11] MEDS: CITALOPRAM 20 MG TAB PO SCH (09:08)
[2019-06-11] MEDS: SOD CHLORIDE 0.9% 1,000 ML IV SCH ×3 (09:11→21:58)
[2019-06-11] MEDS: AMLODIPINE 5 MG TAB GTB SCH (12:00)
--- NOTE | 2019-06-11 12:37 | PDOCDIS ---
Discharge Instructions CONDITION [id number] Patient Condition: [id number] Good HOME CARE INSTRUCTIONS: [id number] Diet Instructions: [id number] Activity Restrictions: [id number] No Restrictions FOLLOW UP/APPOINTMENTS Follow-up Plan pcp 1 week SAGAR MATOS MD Jun 11, 2019 12:37
--- NOTE | 2019-06-11 12:40 | PN ---
Date/Time of Note Date/Time of Note DATE: 06/11/19 TIME: 12:38 Subjective Doing well. No further nausea vomiting. Has mild abdominal pain Objective Vitals Vital Signs Date Temp Pulse Resp B/P (MAP) Pulse Ox O2 O2 Flow FiO2 Time Delivery Rate 06/11/19 97.7 66 18 186/91 96 08:18 (122) 06/10/19 Room Air 22:00 Intake and Output 06/10/19 06/10/19 06/11/19 1515:00 23:00 07:00 IntakeIntake Total 500 ml BalanceBalance 500 ml Clear to auscultation bilaterally Regular rate and rhythm Soft, mildly tender. No rebound or guarding. Normoactive bowel sounds No edema Nonfocal Results Result Diagram: 06/10/19184706/10/191847 Medications Medications Current Medications Benazepril HCl (Lotensin) 40 mg DAILY PO Last administered on 06/11/19 09:08; Admin Dose 40 MG; Start 06/11/19 at 09:00 Citalopram Hydrobromide (Celexa) 10 mg DAILY PO Last administered on 06/11/19 09:08; Admin Dose 10 MG; Start 06/11/19 at 09:00 Lorazepam (Ativan) 0.5 mg QID PRN PO ANXIETY; Start 06/10/19 at 23:30 Pantoprazole (Protonix Tab) 40 mg DAILY@0600 PO Last administered on 06/11/19 06:32; Admin Dose 40 MG; Start 06/11/19 at 06:00 Sucralfate (Carafate) 1 gm AC MEALS AND BEDTIME PO Last administered on 06/11/19 07:33; Admin Dose 1 GM; Start 06/11/19 at 07:05 Hydralazine HCl (Apresoline) 25 mg Q6H PRN PO sbp>160 Last administered on 06/11/19 10:48; Admin Dose 25 MG; Start 06/10/19 at 23:30 Acetaminophen (Tylenol Tab) 650 mg Q4H PRN PO MILD PAIN(1-3)OR ELEVATED TEMP; Start 06/10/19 at 23:30 Hydromorphone HCl (Dilaudid) 0.5 mg Q3H PRN IV SEVERE PAIN LEVEL 7-10 Last administered on 06/11/19at 10:43; Admin Dose 0.5 MG; Start 06/10/19 at 23:30 Sodium Chloride 1,000 ml @ 100 mls/hr Q10H IV Last administered on 06/11/19at 09:11; Admin Dose 100 MLS/HR; Start 06/10/19 at 23:30 Insulin Aspart (Novolog Insulin Pen) NOVOLOG *MILD* ALGORITHM WITH MEALS BEDTIME SC ; Start 06/11/19 at 07:35 Miscellaneous Information 1 ea NOTE XX ; Start 06/10/19 at 23:45 Glucose (Glutose) 15 gm Q15M PRN PO DECREASED GLUCOSE; Start 06/10/19 at 23:45 Glucose (Glutose) 22.5 gm Q15M PRN PO DECREASED GLUCOSE; Start 06/10/19 at 23:45 Dextrose (D50w Syringe) 25 ml Q15M PRN IV DECREASED GLUCOSE; Start 06/10/19 at 23:45 Dextrose (D50w Syringe) 50 ml Q15M PRN IV DECREASED GLUCOSE; Start 06/10/19 at 23:45 Glucagon (Glucagen) 1 mg Q15M PRN IM DECREASED GLUCOSE; Start 06/10/19 at 23:45 Glucose (Glutose) 15 gm Q15M PRN BUCCAL DECREASED GLUCOSE; Start 06/10/19 at 23:45 Amlodipine Besylate (Norvasc) 5 mg DAILY GTB ; Start 06/11/19 at 12:00 VTE Prophylaxis SCD applied (from Nsg): Yes Lines/Catheters IV Catheter Type: Saline Lock Salgado in Place: No Assessment/Plan Assessment/Plan 54-year-old female with abdominal pain associated with nausea and vomiting, improved Rule out diabetic gastroparesis Type 2 diabetes mellitus Hypertension Proceed with gastric emptying study Start diabetic diet Discharge planning home if p.o. intake is well-tolerated GI evaluation pending SAGAR MATOS MD Jun 11, 2019 12:40
[2019-06-11 13:19] VITALS: BP 128/76; PULSE 60; RESP 15
[2019-06-11] MEDS: ONDANSETRON 4 MG INJ IV PRN ×2 (13:35→19:53)
[2019-06-11 14:38] VITALS: BP 121/68; PULSE 61; RESP 19
--- NOTE | 2019-06-11 15:38 | CONS ---
Assessment/Plan Assessment/Plan Assessment/Plan (Daily) #Gastroparesis- CT with food filled stomach - CLD - Reglan PRN - Optimize hyperglycemia - Gastroparesis diet once symptoms improve (frequent small meals, low fat) - Obtain prior EGD reports, no EGD at this time #Hx of Hpylori - Will need outpatient testing for H.Pylori (breath test, will need to be off PPI 10 days prior) #HTN #DM Consultation Date/Type/Reason Admit Date/Time Jun 10, 2019 at 21:15 Date/Time of Note DATE: 06/11/19 TIME: 15:26 Hx of Present Illness Adelaida is a 54-year-old female with a history of diabetes and hypertension who presented to our facility for 3 to 4 days of abdominal pain that has been associated with nausea and inability to tolerate solid foods without vomiting. She states that her abdominal pain is generalized and worse with food intake. She cannot recall a trigger for the events. Nothing has helped the pain improved. She describes the pain as diffuse, 4 out of 10 currently. She denies any fevers or chills. She states that she has lost about 30 pounds in the last few months. She has had upper endoscopy procedures in the past year which she states were positive for finding of H. pylori. A gastric emptying study was positive. She is on PPI therapy at home. Had a colonoscopy completed 2 years prior but is unaware of the results. She denies any melena or hematochezia. Sh e denies any hematemesis. She does not endorse any dysphasia. Respiratory: No no complaints, No pain, No cough, No pleuritic pain, No shortness of breath, No sputum, No wheezing, No other Gastrointestinal: pain; No blood, No constipation, No diarrhea Genitourinary: No no complaints, No bleeding, No dysuria, No discharge, No flank pain, No hematuria, No other Musculoskeletal: No no complaints, No back pain, No bone/joint pain, No neck pain, No restricted range of motion, No swelling, No other Skin: No no complaints, No bruising, No erythema, No laceration, No pruritis, No rash, No skin lesions, No other Past Medical History Medical History: diabetes, hypertension Home Meds Active Scripts Pantoprazole* (Protonix*) 40 Mg Tablet., 40 MG PO DAILY for 30 Days, TAB Prov:SAGAR MATOS MD 05/11/19 Docusate Sodium* (Colace*) 100 Mg Capsule, 100 MG PO Q12H PRN for .CONSTIPATION for 30 Days, CAP Prov:SAGAR MATOS MD 05/11/19 Ondansetron (Ondansetron Odt) 4 Mg Tab.rapdis, 4 MG PO Q6H PRN for NAUSEA AND/OR VOMITING, #10 TAB Prov:CHAD GARCIA MD 04/28/19 Dicyclomine HCl (Dicyclomine HCl) 10 Mg Capsule, 10 MG PO TID PRN for ABDOMINAL CRAMPING, #20 CAP Prov:CHAD GARCIA MD 04/28/19 Reported Medications Metformin Hcl* (Metformin Hcl*) 1,000 Mg Tablet, 1000 MG PO WITH BREAKFAST DINNE, #60 TAB 04/28/19 Sucralfate* (Carafate*) 1 Gm Tab, 1 GM PO AC MEALS AND BEDTIME, TAB 04/28/19 Citalopram Hydrobromide* (Celexa*) 10 Mg Tablet, 10 MG PO DAILY, #30 TAB 04/28/19 Lorazepam* (Lorazepam*) 0.5 Mg Tablet, 0.5-1 MG PO QID PRN for ANXIETY, TAB 04/28/19 Benazepril Hcl* (Benazepril Hcl*) 40 Mg Tablet, 40 MG PO DAILY, #30 TAB 04/28/19 Medications Current Medications Benazepril HCl (Lotensin) 40 mg DAILY PO Last administered on 06/11/19at 09:08; Admin Dose 40 MG; Start 06/11/19 at 09:00 Citalopram Hydrobromide (Celexa) 10 mg DAILY PO Last administered on 06/11/19at 09:08; Admin Dose 10 MG; Start 06/11/19 at 09:00 Lorazepam (Ativan) 0.5 mg QID PRN PO ANXIETY; Start 06/10/19 at 23:30 Pantoprazole (Protonix Tab) 40 mg DAILY@0600 PO Last administered on 06/11/19at 06:32; Admin Dose 40 MG; Start 06/11/19 at 06:00 Sucralfate (Carafate) 1 gm AC MEALS AND BEDTIME PO Last administered on 06/11/19at 07:33; Admin Dose 1 GM; Start 06/11/19 at 07:05 Hydralazine HCl (Apresoline) 25 mg Q6H PRN PO sbp>160 Last administered on 06/11/19at 10:48; Admin Dose 25 MG; Start 06/10/19 at 23:30 Acetaminophen (Tylenol Tab) 650 mg Q4H PRN PO MILD PAIN(1-3)OR ELEVATED TEMP; Start 06/10/19 at 23:30 Hydromorphone HCl (Dilaudid) 0.5 mg Q3H PRN IV SEVERE PAIN LEVEL 7-10 Last administered on 06/11/19at 10:43; Admin Dose 0.5 MG; Start 06/10/19 at 23:30 Sodium Chloride 1,000 ml @ 100 mls/hr Q10H IV Last administered on 06/11/19at 09:11; Admin Dose 100 MLS/HR; Start 06/10/19 at 23:30 Insulin Aspart (Novolog Insulin Pen) NOVOLOG *MILD* ALGORITHM WITH MEALS BEDTIME SC ; Start 06/11/19 at 07:35 Miscellaneous Information 1 ea NOTE XX ; Start 06/10/19 at 23:45 Glucose (Glutose) 15 gm Q15M PRN PO DECREASED GLUCOSE; Start 06/10/19 at 23:45 Glucose (Glutose) 22.5 gm Q15M PRN PO DECREASED GLUCOSE; Start 06/10/19 at 23:45 Dextrose (D50w Syringe) 25 ml Q15M PRN IV DECREASED GLUCOSE; Start 06/10/19 at 23:45 Dextrose (D50w Syringe) 50 ml Q15M PRN IV DECREASED GLUCOSE; Start 06/10/19 at 23:45 Glucagon (Glucagen) 1 mg Q15M PRN IM DECREASED GLUCOSE; Start 06/10/19 at 23:45 Glucose (Glutose) 15 gm Q15M PRN BUCCAL DECREASED GLUCOSE; Start 06/10/19 at 23:45 Amlodipine Besylate (Norvasc) 5 mg DAILY GTB ; Start 06/11/19 at 12:00 Ondansetron HCl (Zofran Inj) 4 mg Q4H PRN IV NAUSEA AND/OR VOMITING Last administered on 06/11/19at 13:35; Admin Dose 4 MG; Start 06/11/19 at 13:30 Allergies: Coded Allergies: No Known Drug Allergies (Unverified Allergy, Unknown, 04/28/19) Past Surgical History Past Surgical Hx: cholecystectomy Family History Significant Family History: no pertinent family hx Social History Alcohol Use: none Smoking Status: Never smoker Drug Use: none Exam/Review of Systems Exam Vitals Vital Signs Date Temp Pulse Resp B/P (MAP) Pulse Ox O2 O2 Flow FiO2 Time Delivery Rate 06/11/19 97.9 61 19 121/68 97 14:38 (85) 06/10/19 Room Air 22:00 Intake and Output 06/10/19 06/10/19 06/11/19 1515:00 23:00 07:00 IntakeIntake Total 500 ml BalanceBalance 500 ml Constitutional: alert, oriented Psych: No confusion, No depression Respiratory: clear to auscultation, normal air movement; No crackles/rales Cardiovascular: regular rate and rhythm, nl pulses Gastrointestinal: soft, bowel sounds, tender; No mass, No rebound or guarding Musculoskeletal: nl extremities to inspection Extremities: normal pulses Results Result Diagram: 06/10/19 1848 06/10/19 1848 Results 24hrs Laboratory Tests Test 06/10/19 18:48 06/10/19 19:01 06/10/19 19:12 06/11/19 07:40 White Blood Count 8.7 # Red Blood Count 4.28 Hemoglobin 13.6 Hematocrit 37.7 Mean Corpuscular 88.1 Volume Mean Corpuscular 31.8 Hemoglobin Mean Corpuscular 36.1 Hemoglobin Concent Red Cell 11.9 Distribution Width Platelet Count 293 # Mean Platelet 9.7 Volume Immature 0.200 Granulocytes % Neutrophils % 63.6 Lymphocytes % 25.6 Monocytes % 6.0 Eosinophils % 4.0 Basophils % 0.6 Nucleated Red 0.0 Blood Cells % Immature 0.020 Granulocytes # Neutrophils # 5.5 Lymphocytes # 2.2 Monocytes # 0.5 Eosinophils # 0.4 Basophils # 0.1 Nucleated Red 0.0 Blood Cells # Urine Color YELLOW Urine Clarity SLIGHTLY CLOUDY A Urine pH 7.0 Urine Specific 1.024 [place] Urine Ketones NEGATIVE Urine Nitrite NEGATIVE Urine Bilirubin NEGATIVE Urine Urobilinogen NEGATIVE Urine Leukocyte NEGATIVE Esterase Urine Microscopic 1 RBC Urine Microscopic 2 WBC Urine Squamous FEW Epithelial Cells Urine Mucus MANY A Urine Hemoglobin NEGATIVE Urine Glucose NEGATIVE Urine Total 1+ H Protein Sodium Level 141 Potassium Level 3.6 Chloride Level 104 Carbon Dioxide 28 Level Anion Gap 9 Blood Urea 7 Nitrogen Creatinine 0.52 Est Glomerular > 60 Filtrat Rate mL/min Glucose Level 147 Calcium Level 10.1 Total Bilirubin 0.5 Direct Bilirubin 0.00 Indirect Bilirubin 0.5 Aspartate Amino 18 Transf (AST/SGOT) Alanine 29 Aminotransferase ( ALT/SGPT) Alkaline 74 Phosphatase Total Protein 7.7 Albumin 4.3 Globulin 3.40 H Albumin/Globulin 1.26 Ratio Lipase 58 POC Beta HCG, NEGATIVE Qualitative Bedside Glucose 131 136 Test 06/11/19 13:03 Bedside Glucose [address] noted Medications Medication Current Medications Benazepril HCl (Lotensin) 40 mg DAILY PO Last administered on 06/11/19 09:08; Admin Dose 40 MG; Start 06/11/19 at 09:00 Citalopram Hydrobromide (Celexa) 10 mg DAILY PO Last administered on 06/11/19 09:08; Admin Dose 10 MG; Start 06/11/19 at 09:00 Lorazepam (Ativan) 0.5 mg QID PRN PO ANXIETY; Start 06/10/19 at 23:30 Pantoprazole (Protonix Tab) 40 mg DAILY@0600 PO Last administered on 06/11/19 06:32; Admin Dose 40 MG; Start 06/11/19 at 06:00 Sucralfate (Carafate) 1 gm AC MEALS AND BEDTIME PO Last administered on 06/11/19 07:33; Admin Dose 1 GM; Start 06/11/19 at 07:05 Hydralazine HCl (Apresoline) 25 mg Q6H PRN PO sbp>160 Last administered on 06/11/19 10:48; Admin Dose 25 MG; Start 06/10/19 at 23:30 Acetaminophen (Tylenol Tab) 650 mg Q4H PRN PO MILD PAIN(1-3)OR ELEVATED TEMP; Start 06/10/19 at 23:30 Hydromorphone HCl (Dilaudid) 0.5 mg Q3H PRN IV SEVERE PAIN LEVEL 7-10 Last administered on 06/11/19 10:43; Admin Dose 0.5 MG; Start 06/10/19 at 23:30 Sodium Chloride 1,000 ml @ 100 mls/hr Q10H IV Last administered on 06/11/19 09:11; Admin Dose 100 MLS/HR; Start 06/10/19 at 23:30 Insulin Aspart (Novolog Insulin Pen) NOVOLOG *MILD* ALGORITHM WITH MEALS BEDTIME SC ; Start 06/11/19 at 07:35 Miscellaneous Information 1 ea NOTE XX ; Start 06/10/19 at 23:45 Glucose (Glutose) 15 gm Q15M PRN PO DECREASED GLUCOSE; Start 06/10/19 at 23:45 Glucose (Glutose) 22.5 gm Q15M PRN PO DECREASED GLUCOSE; Start 06/10/19 at 23:45 Dextrose (D50w Syringe) 25 ml Q15M PRN IV DECREASED GLUCOSE; Start 06/10/19 at 23:45 Dextrose (D50w Syringe) 50 ml Q15M PRN IV DECREASED GLUCOSE; Start 06/10/19 at 23:45 Glucagon (Glucagen) 1 mg Q15M PRN IM DECREASED GLUCOSE; Start 06/10/19 at 23:45 Glucose (Glutose) 15 gm Q15M PRN BUCCAL DECREASED GLUCOSE; Start 06/10/19 at 23:45 Amlodipine Besylate (Norvasc) 5 mg DAILY GTB ; Start 06/11/19 at 12:00 Ondansetron HCl (Zofran Inj) 4 mg Q4H PRN IV NAUSEA AND/OR VOMITING Last administered on 06/11/19at 13:35; Admin Dose 4 MG; Start 06/11/19 at 13:30 BRANDY DARDEN Jun 11, 2019 15:38
[2019-06-11 20:49] VITALS: BP 146/68; PULSE 64; RESP 18
--- NOTE | 2019-06-11 21:23 | RADRPT ---
Echocardiogram Report Patient Name: HIEU PATTONPatient ID: [id number] : 1965 (54y 3m)Study Date: 06/11/2019 10:12:16 AM Gender: FAccession #: [id number] Tech: [employer] [facility] Location: [facility]- Ref.Physician: RICKY DIXON Height(Cm): BSA: Weight(Kg): Quality: AdequateOrder Physician: RICKY DIXON Account #: Procedures: Echocardiographic Report: Transthoracic echocardiogram with complete 2D, M-Mode, and doppler examination. Indications: Syncope. Measurements: 2D/M Mode Doppler Measurement Value Normal Range Measurement Value Normal Range LVIDd 2D 4.0 [ 3.8 - 5.2 ] cm AV Peak Anthony 1.2 [ 100.0 - 170.0 ] cm/sec LVIDs 2D 2.7 [ 2.2 - 3.5 ] cm AV Peak PG 6.0 [ 2.0 - 9.0 ] mmHg LVPWd 2D 1.0 [ 0.6 - 0.9 ] cm LVOT Peak Anthony 0.9 [ 70.0 - 110.0 ] cm/sec IVSd 2D 1.1 [ 0.6 - 0.9 ] cm LVOT Peak PG 3.0 [ 2.0 - 6.0 ] mmHg AoR Diam 2D 2.7 [ 2.3 - 3.1 ] cm MV E Peak Anthony 0.7 [ 60.0 - 130.0 ] cm/sec EDV 2D 68.3 [ 46.0 - 106.0 ] ml MV A Peak Anthony 0.4 [ 100.0 - 120.0 ] cm/sec ESV 2D 26.0 [ 14.0 - 42.0 ] ml MV E/A 1.7 [ 0.8 - 1.5 ] ratio EF 2D 61.9 [ 54.0 - 74.0 ] percent MV Decel Time 194 [ 104 - 258 ] msec LA Dimen 2D 2.9 [ 2.7 - 3.8 ] cm Lat E` Anthony 0.1 [ 10.0 - 15.0 ] cm/sec Lateral E/E` 6.5 [ 1.0 - 2.0 ] ratio Med E` Anthony 0.1 cm/sec MV E/A 1.7 [ 0.8 - 1.5 ] ratio RA Pressure 8.0 mmHg Findings: Left Ventricle: Normal left ventricular systolic function. Normal left ventricular cavity size. Left ventricular wall thickness upper limits of normal. Ejection fraction is visually estimated at 65 %. Right Ventricle: Normal right ventricular size. Normal right ventricular systolic function. Left Atrium: The left atrium is normal in size. Right Atrium: The right atrium is normal in size. Mitral Valve: Mild mitral leaflet calcification. Mild mitral annular calcification. Trace mitral regurgitation. Aortic Valve: Normal appearance of the aortic valve. No significant aortic stenosis or insufficiency. Tricuspid Valve: Normal appearance and function of the tricuspid valve with trace physiologic regurgitation. Pericardium: Normal pericardium with no significant pericardial effusion. Aorta: Normal aortic root. IVC: Normal size with poor respiratory collapse consistent with elevated right atrial pressure. Conclusions: Normal left ventricular systolic function. Normal left ventricular cavity size. Left ventricular wall thickness upper limits of normal. Ejection fraction is visually estimated at 65 %. Normal right ventricular size. Normal right ventricular systolic function. No significant valvular stenosis or regurgitation seen. Normal pericardium with no significant pericardial effusion. Electronically Signed By: Miguel A Becker 2019-06-11 21:22:30 PDT
[2019-06-12 01:48] VITALS: BP 143/65; PULSE 65; RESP 18
[2019-06-12] MEDS: HYDROmorphONE 0.5 MG/0.5 ML SYG IV PRN ×5 (03:55→21:30)
[2019-06-12] MEDS: SOD CHLORIDE 0.9% 1,000 ML IV SCH ×3 (04:41→19:00)
[2019-06-12] MEDS: PANTOPRAZOLE (EC) 40 MG TAB PO SCH (06:18)
[2019-06-12 07:40] VITALS: BP 135/68; PULSE 72; RESP 18
[2019-06-12] MEDS: SUCRALFATE 1 GM TAB PO SCH ×4 (08:23→21:30)
[2019-06-12] MEDS: BENAZEPRIL 40 MG TAB PO SCH (08:24)
[2019-06-12] MEDS: CITALOPRAM 20 MG TAB PO SCH (08:24)
[2019-06-12] MEDS: AMLODIPINE 5 MG TAB GTB SCH (08:24)
[2019-06-12] MEDS: ONDANSETRON 4 MG INJ IV PRN ×3 (08:25→18:16)
[2019-06-12] MEDS: INSULIN ASPART [NOVOLOG] 3 ML PEN SC SCH ×4 (09:00→21:00)
--- NOTE | 2019-06-12 11:49 | PN ---
Date/Time of Note Date/Time of Note DATE: 06/12/19 TIME: 11:47 Subjective Continues to have nausea and vomiting. No abdominal pain Objective Vitals Vital Signs Date Temp Pulse Resp B/P (MAP) Pulse Ox O2 O2 Flow FiO2 Time Delivery Rate 06/12/19 98.4 72 18 135/68 92 Room Air 07:40 (90) Intake and Output 06/11/19 06/11/19 06/12/19 1515:00 23:00 07:00 IntakeIntake Total 500 ml 1480 ml 700 ml BalanceBalance 500 ml 1480 ml 700 ml Clear to auscultation bilaterally Regular rate and rhythm Soft mildly tender no rebound or guarding normoactive bowel sounds No edema Nonfocal Results Result Diagram: 06/10/19184706/10/191847 Medications Medications Current Medications Benazepril HCl (Lotensin) 40 mg DAILY PO Last administered on 06/12/19 08:24; Admin Dose 40 MG; Start 06/11/19 at 09:00 Citalopram Hydrobromide (Celexa) 10 mg DAILY PO Last administered on 06/12/19 08:24; Admin Dose 10 MG; Start 06/11/19 at 09:00 Lorazepam (Ativan) 0.5 mg QID PRN PO ANXIETY; Start 06/10/19 at 23:30 Pantoprazole (Protonix Tab) 40 mg DAILY@0600 PO Last administered on 06/12/19 06:18; Admin Dose 40 MG; Start 06/11/19 at 06:00 Sucralfate (Carafate) 1 gm AC MEALS AND BEDTIME PO Last administered on 11:30; Admin Dose 1 GM; Start 06/11/19 at 07:05 Hydralazine HCl (Apresoline) 25 mg Q6H PRN PO sbp>160 Last administered on 06/11/19 10:48; Admin Dose 25 MG; Start 06/10/19 at 23:30 Acetaminophen (Tylenol Tab) 650 mg Q4H PRN PO MILD PAIN(1-3)OR ELEVATED TEMP; Start 06/10/19 at 23:30 Hydromorphone HCl (Dilaudid) 0.5 mg Q3H PRN IV SEVERE PAIN LEVEL 7-10 Last administered on 06/12/19 11:30; Admin Dose 0.5 MG; Start 06/10/19 at 23:30 Sodium Chloride 1,000 ml @ 100 mls/hr Q10H IV Last administered on 06/12/19at 09:08; Admin Dose 100 MLS/HR; Start 06/10/19 at 23:30 Insulin Aspart (Novolog Insulin Pen) NOVOLOG *MILD* ALGORITHM WITH MEALS BEDTIME SC ; Start 06/11/19 at 07:35 Miscellaneous Information 1 ea NOTE XX ; Start 06/10/19 at 23:45 Glucose (Glutose) 15 gm Q15M PRN PO DECREASED GLUCOSE; Start 06/10/19 at 23:45 Glucose (Glutose) 22.5 gm Q15M PRN PO DECREASED GLUCOSE; Start 06/10/19 at 23:45 Dextrose (D50w Syringe) 25 ml Q15M PRN IV DECREASED GLUCOSE; Start 06/10/19 at 23:45 Dextrose (D50w Syringe) 50 ml Q15M PRN IV DECREASED GLUCOSE; Start 06/10/19 at 23:45 Glucagon (Glucagen) 1 mg Q15M PRN IM DECREASED GLUCOSE; Start 06/10/19 at 23:45 Glucose (Glutose) 15 gm Q15M PRN BUCCAL DECREASED GLUCOSE; Start 06/10/19 at 23:45 Amlodipine Besylate (Norvasc) 5 mg DAILY GTB Last administered on 06/12/19at 08:24; Admin Dose 5 MG; Start 06/11/19 at 12:00 Ondansetron HCl (Zofran Inj) 4 mg Q4H PRN IV NAUSEA AND/OR VOMITING Last administered on 06/12/19at 08:25; Admin Dose 4 MG; Start 06/11/19 at 13:30 Erythromycin (Erythromycin) 250 mg Q8 PO ; Start 06/12/19 at 14:00 VTE Prophylaxis Risk score (from Nsg)>0 risk: 1 SCD applied (from Nsg): Yes Lines/Catheters IV Catheter Type: Saline Lock Salgado in Place: No Assessment/Plan Assessment/Plan 55-year-old female with abdominal pain and postprandial nausea and vomiting Type 2 diabetes mellitus Diabetic gastroparesis. Gastric emptying study was positive Continue current therapy Start erythromycin 250 mg 3 times daily Reglan as needed GI follow-up SAGAR MATOS MD Jun 12, 2019 11:49
[2019-06-12 14:00] VITALS: BP 123/67; PULSE 76; RESP 18
[2019-06-12] MEDS: ERYTHROMYCIN BASE (DR) 250 MG CAP PO SCH ×2 (14:00→23:16)
--- NOTE | 2019-06-12 14:37 | PN ---
Date/Time of Note Date/Time of Note DATE: 06/12/19 TIME: 14:33 Assessment/Plan VTE Prophylaxis Risk score (from Nsg)>0 risk: 2 SCD applied (from Nsg): Yes Pharmacological prophylaxis: other (scds) Lines/Catheters IV Catheter Type (from Nrsg): Saline Lock Urinary Cath still in place: No Assessment/Plan Hospital Course Assessment: Gastroparesis- CT with food filled stomach Hx of Hpylori HTN DM Plan: Patient refusing soft diet- will change to clear liquid- advance as tolerated Erythromycin started-refused first dose nursing staff to utilize Reglan as needed Continue Reglan PRN Will need outpatient testing for H.Pylori (breath test, will need to be off PPI 10 days prior) Optimize hyperglycemia Gastroparesis diet once symptoms improve (frequent small meals, low fat) Obtain prior EGD reports, no EGD at this time- pending D/c planning when patient able to tolerate PO intake Patient seen in collaboration with Dr. Brown Subjective/Free text:: Course reviewed with nursing staff Patient interviewed and examined All labs, imaging and other results reviewed The patient continues to c/o abd pain nausea/vomiting Requesting Dilaudid frequently. Educated patient on importance of only using Dilaudid for severe/significant pain as Dilaudid can potentially make gastroparesis worse. Discussed results of gastric emptying study with plan. Encourage ambulation and getting out of bed importance of taking prescribe medication to help with current symptoms Constitutional: alert, oriented Psych: No confusion, No depression Respiratory: clear to auscultation, normal air movement; No crackles/rales Cardiovascular: regular rate and rhythm, nl pulses Gastrointestinal: soft, bowel sounds, tender; No mass, No rebound or guarding Musculoskeletal: nl extremities to inspection Extremities: normal pulses Result Diagram: 06/10/19 1848 06/10/19 1848 Results 24hrs Laboratory Tests Test 06/11/19 17:13 06/11/19 20:50 06/12/19 08:59 06/12/19 13:04 Bedside Glucose 123 110 105 97 Exam/Review of Systems Exam Vitals Vital Signs Date Temp Pulse Resp B/P (MAP) Pulse Ox O2 O2 Flow FiO2 Time Delivery Rate 06/12/19 98.5 76 18 123/67 97 Room Air 14:00 (85) Intake and Output 06/11/19 06/11/19 06/12/19 1515:00 23:00 07:00 IntakeIntake Total 500 ml 1480 ml 700 ml BalanceBalance 500 ml 1480 ml 700 ml Results Results 24hrs Laboratory Tests Test 06/11/19 17:13 06/11/19 20:50 06/12/19 08:59 06/12/19 13:04 Bedside Glucose 123 110 105 97 Medications Medication Current Medications Benazepril HCl (Lotensin) 40 mg DAILY PO Last administered on 06/12/19 08:24; Admin Dose 40 MG; Start 06/11/19 at 09:00 Citalopram Hydrobromide (Celexa) 10 mg DAILY PO Last administered on 06/12/19 08:24; Admin Dose 10 MG; Start 06/11/19 at 09:00 Lorazepam (Ativan) 0.5 mg QID PRN PO ANXIETY; Start 06/10/19 at 23:30 Pantoprazole (Protonix Tab) 40 mg DAILY@0600 PO Last administered on 06/12/19at 06:18; Admin Dose 40 MG; Start 06/11/19 at 06:00 Sucralfate (Carafate) 1 gm AC MEALS AND BEDTIME PO Last administered on 06/12/19 11:30; Admin Dose 1 GM; Start 06/11/19 at 07:05 Hydralazine HCl (Apresoline) 25 mg Q6H PRN PO sbp>160 Last administered on 06/11/19at 10:48; Admin Dose 25 MG; Start 06/10/19 at 23:30 Acetaminophen (Tylenol Tab) 650 mg Q4H PRN PO MILD PAIN(1-3)OR ELEVATED TEMP; Start 06/10/19 at 23:30 Hydromorphone HCl (Dilaudid) 0.5 mg Q3H PRN IV SEVERE PAIN LEVEL 7-10 Last administered on 06/12/19 11:30; Admin Dose 0.5 MG; Start 06/10/19 at 23:30 Sodium Chloride 1,000 ml @ 100 mls/hr Q10H IV Last administered on 06/12/19 09:08; Admin Dose 100 MLS/HR; Start 06/10/19 at 23:30 Insulin Aspart (Novolog Insulin Pen) NOVOLOG *MILD* ALGORITHM WITH MEALS BEDTIME SC ; Start 06/11/19 at 07:35 Miscellaneous Information 1 ea NOTE XX ; Start 06/10/19 at 23:45 Glucose (Glutose) 15 gm Q15M PRN PO DECREASED GLUCOSE; Start 06/10/19 at 23:45 Glucose (Glutose) 22.5 gm Q15M PRN PO DECREASED GLUCOSE; Start 06/10/19 at 23:45 Dextrose (D50w Syringe) 25 ml Q15M PRN IV DECREASED GLUCOSE; Start 06/10/19 at 23:45 Dextrose (D50w Syringe) 50 ml Q15M PRN IV DECREASED GLUCOSE; Start 06/10/19 at 23:45 Glucagon (Glucagen) 1 mg Q15M PRN IM DECREASED GLUCOSE; Start 06/10/19 at 23:45 Glucose (Glutose) 15 gm Q15M PRN BUCCAL DECREASED GLUCOSE; Start 06/10/19 at 23:45 Amlodipine Besylate (Norvasc) 5 mg DAILY GTB Last administered on 06/12/19at 08:24; Admin Dose 5 MG; Start 06/11/19 at 12:00 Ondansetron HCl (Zofran Inj) 4 mg Q4H PRN IV NAUSEA AND/OR VOMITING Last administered on 06/12/19at 13:20; Admin Dose 4 MG; Start 06/11/19 at 13:30 Erythromycin (Erythromycin) 250 mg Q8 PO ; Start 06/12/19 at 14:00 LUTHER ARAIZA Jun 12, 2019 14:37
[2019-06-12] MEDS ORDERED: METOCLOPRAMIDE 10 MG INJ IV PRN (15:00)
[2019-06-12 19:32] VITALS: BP 133/67; PULSE 72; RESP 18
[2019-06-13] MEDS: ONDANSETRON 4 MG INJ IV PRN (01:48)
[2019-06-13 01:53] VITALS: BP 167/75; PULSE 64; RESP 20
[2019-06-13 03:46] VITALS: BP 147/67; PULSE 76
[2019-06-13] MEDS: SOD CHLORIDE 0.9% 1,000 ML IV SCH ×2 (05:24→16:01)
[2019-06-13] MEDS: ERYTHROMYCIN BASE (DR) 250 MG CAP PO SCH ×3 (06:46→22:58)
[2019-06-13] MEDS: PANTOPRAZOLE (EC) 40 MG TAB PO SCH (06:46)
[2019-06-13] MEDS: SUCRALFATE 1 GM TAB PO SCH ×4 (06:46→20:09)
[2019-06-13] MEDS: HYDROmorphONE 0.5 MG/0.5 ML SYG IV PRN (06:47)
[2019-06-13 07:30] VITALS: BP 169/78; PULSE 74; RESP 18
[2019-06-13] MEDS: INSULIN ASPART [NOVOLOG] 3 ML PEN SC SCH ×4 (07:35→20:25)
[2019-06-13] MEDS: AMLODIPINE 5 MG TAB GTB SCH (08:21)
[2019-06-13] MEDS: CITALOPRAM 20 MG TAB PO SCH (08:22)
[2019-06-13] MEDS: BENAZEPRIL 40 MG TAB PO SCH (08:22)
--- NOTE | 2019-06-13 10:46 | PN ---
Date/Time of Note Date/Time of Note DATE: 06/13/19 TIME: 10:34 Assessment/Plan VTE Prophylaxis Risk score (from Nsg)>0 risk: 2 SCD applied (from Nsg): Yes Pharmacological prophylaxis: NA/contraindicated Pharm contraindication: low risk/ambulating Lines/Catheters IV Catheter Type (from Nrsg): Peripheral IV Urinary Cath still in place: No Assessment/Plan Hospital Course Assessment: Gastroparesis- CT with food filled stomach Hx of H. pylori HTN DM Recent EGD 04/10/19-moderate distal esophagitis, moderate gastritis. Rule out H. pylori, biopsied. Moderate duodenitis Plan: Await recent pathology results from EGD completed in April Clear liquid- advance to full liquid - Gastroparesis diet once symptoms improve (frequent small meals, low fat) Continue Erythromycin. Utilize Reglan as needed Optimize hyperglycemia CT abd/pelvis- for diffusely tender abd D/c planning when patient able to tolerate PO intake Patient seen in collaboration with Dr. Brown Subjective/Free text:: Course reviewed with nursing staff Patient interviewed and examined All labs, imaging and other results reviewed Patient tolerating clear liquid diet, however still c/o diffuse abdominal pain. Reviewed EGD completed in April at [facility] with patient. Awaiting pathology results PHYSICAL EXAMINATION: GENERAL: Well developed, well nourished, alert & oriented x 3, in no acute distress SKIN: No lesions HEAD: Normocephalic, atraumatic, no tenderness. EYES: Pupils equal reactive to light and accommodation, full extraocular movements, sclera clear, non-icteric, no discharge. EARS/NOSE AND THROAT: Ears normal, nose normal, oropharynx normal, oral membranes well hydrated without lesions. NECK: Supple, no masses. CHEST: Inspection within normal limits. CARDIOVASCULAR: Heart: Regular rate and rhythm RESPIRATORY: Lungs clear to auscultation and percussion, no wheezing, no rubs GASTROINTESTINAL AND LIVER: Abdomen: Soft, diffuse tenderness, non-distended, no hernias, normoactive bowel sounds. Rectal: Deferred. EXTREMITIES: No cyanosis, clubbing or edema. Result Diagram: 06/10/19 1848 06/10/19 1848 Results 24hrs Laboratory Tests Test 06/12/19 13:04 06/12/19 17:14 06/12/19 21:34 06/13/19 08:15 Bedside Glucose 97 116 98 100 Exam/Review of Systems Exam Vitals Vital Signs Date Temp Pulse Resp B/P (MAP) Pulse Ox O2 O2 Flow FiO2 Time Delivery Rate 06/13/19 76 147/67 03:46 (93) 06/13/19 98.7 20 96 Room Air 01:53 Intake and Output 06/12/19 06/12/19 06/13/19 1515:00 23:00 07:00 IntakeIntake Total 1000 ml 1240 ml OutputOutput Total 1700 ml BalanceBalance 1000 ml -460 ml Results Results 24hrs Laboratory Tests Test 06/12/19 13:04 06/12/19 17:14 06/12/19 21:34 06/13/19 08:15 Bedside Glucose 97 116 98 100 Medications Medication Current Medications Benazepril HCl (Lotensin) 40 mg DAILY PO Last administered on 06/13/19 08:22; Admin Dose 40 MG; Start 06/11/19 at 09:00 Citalopram Hydrobromide (Celexa) 10 mg DAILY PO Last administered on 06/13/19 08:22; Admin Dose 10 MG; Start 06/11/19 at 09:00 Lorazepam (Ativan) 0.5 mg QID PRN PO ANXIETY; Start 06/10/19 at 23:30 Pantoprazole (Protonix Tab) 40 mg DAILY@0600 PO Last administered on 06/13/19 06:46; Admin Dose 40 MG; Start 06/11/19 at 06:00 Sucralfate (Carafate) 1 gm AC MEALS AND BEDTIME PO Last administered on 06/13/19 06:46; Admin Dose 1 GM; Start 06/11/19 at 07:05 Hydralazine HCl (Apresoline) 25 mg Q6H PRN PO sbp>160 Last administered on 06/11/19 10:48; Admin Dose 25 MG; Start 06/10/19 at 23:30 Acetaminophen (Tylenol Tab) 650 mg Q4H PRN PO MILD PAIN(1-3)OR ELEVATED TEMP; Start 06/10/19 at 23:30 Sodium Chloride 1,000 ml @ 100 mls/hr Q10H IV Last administered on 06/13/19 05:24; Admin Dose 100 MLS/HR; Start 06/10/19 at 23:30 Insulin Aspart (Novolog Insulin Pen) NOVOLOG *MILD* ALGORITHM WITH MEALS BEDTIME SC ; Start 06/11/19 at 07:35 Miscellaneous Information 1 ea NOTE XX ; Start 06/10/19 at 23:45 Glucose (Glutose) 15 gm Q15M PRN PO DECREASED GLUCOSE; Start 06/10/19 at 23:45 Glucose (Glutose) 22.5 gm Q15M PRN PO DECREASED GLUCOSE; Start 06/10/19 at 23:45 Dextrose (D50w Syringe) 25 ml Q15M PRN IV DECREASED GLUCOSE; Start 06/10/19 at 23:45 Dextrose (D50w Syringe) 50 ml Q15M PRN IV DECREASED GLUCOSE; Start 06/10/19 at 23:45 Glucagon (Glucagen) 1 mg Q15M PRN IM DECREASED GLUCOSE; Start 06/10/19 at 23:45 Glucose (Glutose) 15 gm Q15M PRN BUCCAL DECREASED GLUCOSE; Start 06/10/19 at 23:45 Amlodipine Besylate (Norvasc) 5 mg DAILY GTB Last administered on 06/13/19at 08:21; Admin Dose 5 MG; Start 06/11/19 at 12:00 Ondansetron HCl (Zofran Inj) 4 mg Q4H PRN IV NAUSEA AND/OR VOMITING Last administered on 06/13/19at 01:48; Admin Dose 4 MG; Start 06/11/19 at 13:30 Erythromycin (Erythromycin) 250 mg Q8 PO Last administered on 06/13/19at 06:46; Admin Dose 250 MG; Start 06/12/19 at 14:00 Metoclopramide HCl (Reglan) 10 mg Q6H PRN IV n/v Last administered on 06/12/19at 14:51; Admin Dose 10 MG; Start 06/12/19 at 15:00 LUTHER ARAIZA Jun 13, 2019 10:46
--- NOTE | 2019-06-13 10:58 | PN ---
Date/Time of Note Date/Time of Note DATE: 06/13/19 TIME: 10:54 Subjective Continues to have diffuse abdominal pain associated with nausea and vomiting. Objective Vitals Vital Signs Date Temp Pulse Resp B/P (MAP) Pulse Ox O2 O2 Flow FiO2 Time Delivery Rate 06/13/19 76 147/67 03:46 (93) 06/13/19 98.7 20 96 Room Air 01:53 Intake and Output 06/12/19 06/12/19 06/13/19 1515:00 23:00 07:00 IntakeIntake Total 1000 ml 1240 ml OutputOutput Total 1700 ml BalanceBalance 1000 ml -460 ml Clear to auscultation bilaterally Regular rate and rhythm Soft, diffusely tender, no rebound or guarding, normoactive bowel sounds No edema Nonfocal Results Result Diagram: 06/10/19 1848 06/10/191847 Medications Medications Current Medications Benazepril HCl (Lotensin) 40 mg DAILY PO Last administered on 06/13/19 08:22; Admin Dose 40 MG; Start 06/11/19 at 09:00 Citalopram Hydrobromide (Celexa) 10 mg DAILY PO Last administered on 06/13/19 08:22; Admin Dose 10 MG; Start 06/11/19 at 09:00 Lorazepam (Ativan) 0.5 mg QID PRN PO ANXIETY; Start 06/10/19 at 23:30 Pantoprazole (Protonix Tab) 40 mg DAILY@0600 PO Last administered on 06/13/19 06:46; Admin Dose 40 MG; Start 06/11/19 at 06:00 Sucralfate (Carafate) 1 gm AC MEALS AND BEDTIME PO Last administered on 06/13/19 06:46; Admin Dose 1 GM; Start 06/11/19 at 07:05 Hydralazine HCl (Apresoline) 25 mg Q6H PRN PO sbp>160 Last administered on 06/11/19at 10:48; Admin Dose 25 MG; Start 06/10/19 at 23:30 Acetaminophen (Tylenol Tab) 650 mg Q4H PRN PO MILD PAIN(1-3)OR ELEVATED TEMP; Start 06/10/19 at 23:30 Sodium Chloride 1,000 ml @ 100 mls/hr Q10H IV Last administered on 8/7/19at 05:24; Admin Dose 100 MLS/HR; Start 06/10/19 at 23:30 Insulin Aspart (Novolog Insulin Pen) NOVOLOG *MILD* ALGORITHM WITH MEALS BEDTIME SC ; Start 06/11/19 at 07:35 Miscellaneous Information 1 ea NOTE XX ; Start 06/10/19 at 23:45 Glucose (Glutose) 15 gm Q15M PRN PO DECREASED GLUCOSE; Start 06/10/19 at 23:45 Glucose (Glutose) 22.5 gm Q15M PRN PO DECREASED GLUCOSE; Start 06/10/19 at 23:45 Dextrose (D50w Syringe) 25 ml Q15M PRN IV DECREASED GLUCOSE; Start 06/10/19 at 23:45 Dextrose (D50w Syringe) 50 ml Q15M PRN IV DECREASED GLUCOSE; Start 06/10/19 at 23:45 Glucagon (Glucagen) 1 mg Q15M PRN IM DECREASED GLUCOSE; Start 06/10/19 at 23:45 Glucose (Glutose) 15 gm Q15M PRN BUCCAL DECREASED GLUCOSE; Start 06/10/19 at 23:45 Amlodipine Besylate (Norvasc) 5 mg DAILY GTB Last administered on 06/13/19at 08:21; Admin Dose 5 MG; Start 06/11/19 at 12:00 Ondansetron HCl (Zofran Inj) 4 mg Q4H PRN IV NAUSEA AND/OR VOMITING Last administered on 06/13/19at 01:48; Admin Dose 4 MG; Start 06/11/19 at 13:30 Erythromycin (Erythromycin) 250 mg Q8 PO Last administered on 06/13/19at 06:46; Admin Dose 250 MG; Start 06/12/19 at 14:00 Tramadol HCl (Ultram) 50 mg Q6H PRN PO MODERATE PAIN LEVEL 4-6; Start 06/13/19 at 11:00; Status UNV Metoclopramide HCl (Reglan) 10 mg Q6H IV ; Start 06/13/19 at 15:00; Status UNV VTE Prophylaxis Risk score (from Nsg)>0 risk: 2 SCD applied (from Nsg): Yes Lines/Catheters IV Catheter Type: Saline Lock Salgado in Place: No Assessment/Plan Assessment/Plan 55-year-old female with persistent abdominal pain nausea and vomiting. Recent EGD at [facility] showed chronic gastritis and esophagitis. There was no evidence of H. pylori Diabetic gastroparesis Drug-seeking behavior Abdominal and pelvic CT with oral and IV contrast Discontinue Dilaudid Tramadol as needed Check hemoglobin A1c Plan of care was discussed with GI nurse practitioner SAGAR MATOS MD Jun 13, 2019 10:58
[2019-06-13] MEDS ORDERED: traMADol 50 MG TAB PO PRN (11:00)
[2019-06-13] MEDS: METOCLOPRAMIDE 10 MG INJ IV SCH ×3 (12:07→23:02)
[2019-06-13] MEDS ORDERED: IOHEXOL 14.3 MG(I)/ML (ADULT) BTL PO ONE (13:30)
[2019-06-13 14:00] VITALS: BP 134/72; PULSE 72; RESP 18
[2019-06-13] MEDS ORDERED: IOHEXOL 300MG/ML 150 ML BTL ONE (18:43)
[2019-06-13] MEDS ORDERED: SOD CHLORIDE 0.9% 100 ML ONE (18:43)
[2019-06-13 19:39] VITALS: BP 164/76; PULSE 72; RESP 20
[2019-06-13 20:20] VITALS: BP 153/76; PULSE 78
[2019-06-14 02:00] VITALS: BP 148/72; PULSE 80; RESP 20
[2019-06-14] MEDS: ERYTHROMYCIN BASE (DR) 250 MG CAP PO SCH (05:26)
[2019-06-14] MEDS: PANTOPRAZOLE (EC) 40 MG TAB PO SCH (05:26)
[2019-06-14] MEDS: METOCLOPRAMIDE 10 MG INJ IV SCH (05:26)
[2019-06-14] MEDS: INSULIN ASPART [NOVOLOG] 3 ML PEN SC SCH (07:35)
[2019-06-14] MEDS: SUCRALFATE 1 GM TAB PO SCH (08:18)
[2019-06-14] MEDS: CITALOPRAM 20 MG TAB PO SCH (08:18)
[2019-06-14] MEDS: BENAZEPRIL 40 MG TAB PO SCH (08:19)
[2019-06-14] MEDS: AMLODIPINE 5 MG TAB GTB SCH (08:20)
--- NOTE | 2019-06-14 09:41 | PDOCDIS ---
Discharge Instructions CONDITION [id number] Patient Condition: [id number] Good HOME CARE INSTRUCTIONS: [id number] Diet Instructions: [id number] Activity Restrictions: [id number] No Restrictions FOLLOW UP/APPOINTMENTS Follow-up Plan pcp [address] Brar 2 weeks SAGAR MATOS MD Jun 14, 2019 09:41
--- NOTE | 2019-06-14 19:59 | DS ---
DATE OF ADMISSION: 06/11/2019 DATE OF DISCHARGE: 06/14/2019 DISCHARGE DIAGNOSES: 1. A 54-year-old female with abdominal pain, nausea and vomiting due to diabetic gastroparesis, reso lved. 2. Type 2 diabetes mellitus. 3. Drug-seeking behavior. HOSPITAL COURSE: A 54-year-old female with type 2 diabetes mellitus, presented to the emergency room with several days of abdominal pain associated with nausea and vomiting. This was attributed to chasity betic gastroparesis. The patient was seen in consultation by gastroenterology group. Gastric emptyi ng study showed delayed emptying consistent with gastroparesis. The patient had persistent abdominal pain and requested IV narcotics round the clock. CAT scan of th e abdomen and pelvis was completely unremarkable. The patient had recent EGD at [facility] approximately 6 weeks prior to admission. This showed chronic gastritis and esophagitis. The re was no evidence of H. pylori. Her pain resolved completely. She was tolerating oral intake. The patient is in a stable condition for discharge. MEDICATIONS ON DISCHARGE: 1. Erythromycin 250 mg p.o. q.8 hours. 2. Reglan 10 mg before each meal. 3. Benazepril 40 mg daily. 4. Celexa 10 mg daily. 5. Dicyclomine 10 mg t.i.d. 6. Colace 100 mg b.i.d. 7. Lorazepam 0.5 mg 4 times a day as needed. 8. Metformin 1000 mg b.i.d. 9. Protonix 40 mg daily. 10. Carafate 1 gram before each meal and at bedtime. FOLLOWUP: 1. Follow up with PCP in 1 week. 2. Follow up with GI in 2 weeks. Dictated By: SAGAR HINTON/NTS Conf#: [id number] DID#: [id number] CC: RICKY DIXON MD; OG DAS NP; BRANDY DARDEN MD;*End*
== END 2019-06-14 11:30 | disposition home or self-care (01) | DRG 74 ==
LOC: E/R 17:25 → OBSVTOIN 21:15 → MS3 21:15 → INTOOBSV 21:15 → OBSVTOIN 06-11 14:19
PROVIDERS: ADMIT Legal Medicine; ATTEND Legal Medicine
DX: E11.43 Type 2 diabetes mellitus with diabetic autonomic (poly)neuropathy (principal); K31.84 Gastroparesis; I10 Essential (primary) hypertension; Z76.5 Malingerer [conscious simulation]
CPT/HCPCS: 36415; 73060; 74177; 78264; 80053; 81001; 81025; 82962; 83036; 83690; 85025; 93306; 96374; 96375; 99217; A9541; G0378; J1170; J1815; J2270; J2405; J2765; J7030; Q9967